=== PATIENT | female | born 1940 | race Caucasian/White ===

== ENCOUNTER 2020-10-09 08:12 | Outpatient (REF) | payer MEDICARE, OTHER, SELFPAY ==
[2020-10-09 09:41] LABS: Alanine Aminotransferase 12 U/L (0-31); Aspartate Amino Transferase 26 U/L (5-31); Cholesterol 171 mg/dL; HDL Cholesterol 68 mg/dL; LDL Cholesterol Calculated 84 mg/dl; Triglycerides 99 mg/dL
[2020-10-09 10:10] LABS: Vitamin D 25-OH Total 58.7 ng/mL (>30)
== END 2020-10-09 08:13 | disposition home or self-care (01) ==
LOC: HO.LAB 08:12
PROVIDERS: PCP Internal Medicine; Visit Provider Internal Medicine
DX: E78.5 Hyperlipidemia, unspecified (principal); L65.9 Nonscarring hair loss, unspecified; Z78.0 Asymptomatic menopausal state
CPT/HCPCS: 36415; 80061; 82306; 84450; 84460

== ENCOUNTER 2021-04-11 08:22 | Outpatient (REF) | payer MEDICARE, OTHER, SELFPAY ==
[2021-04-11 11:53] LABS: Alanine Aminotransferase 13 U/L (0-31); Anion Gap 12 (12-20); Aspartate Amino Transferase 27 U/L (5-31); Blood Urea Nitrogen 16 mg/dL (9-16); Calcium 9.7 mg/dL (8.4-10.2); Carbon Dioxide 31 mmol/L (22-29); Chloride 105 mmol/L (96-108); Cholesterol 175 mg/dL; Estimated Glomerular Filt Rate > 60; Glucose Fasting 95 mg/dL (60-99); HDL Cholesterol 63 mg/dL; LDL Cholesterol Calculated 81 mg/dl; Potassium 5.4 mmol/L (3.3-5.1); Sodium 143 mmol/L (135-145); Triglycerides 158 mg/dL
[2021-04-11 12:16] LABS: Vitamin D 25-OH Total 51.8 ng/mL (>30)
== END 2021-04-11 08:23 | disposition home or self-care (01) ==
LOC: HO.HMGCLDS 08:22
PROVIDERS: PCP Internal Medicine; Visit Provider Internal Medicine
DX: E78.5 Hyperlipidemia, unspecified (principal); I10 Essential (primary) hypertension; Z78.0 Asymptomatic menopausal state
CPT/HCPCS: 36415; 80048; 80061; 82306; 84450; 84460

== ENCOUNTER 2021-06-20 07:58 | Outpatient (REF) | payer MEDICARE, OTHER, SELFPAY ==
[2021-06-20 09:02] LABS: Alanine Aminotransferase 10 U/L (0-31); Aspartate Amino Transferase 26 U/L (5-31); Cholesterol 178 mg/dL; HDL Cholesterol 57 mg/dL; LDL Cholesterol Calculated 98 mg/dl; Triglycerides 118 mg/dL
== END 2021-06-20 07:59 | disposition home or self-care (01) ==
LOC: HO.LAB 07:58
PROVIDERS: PCP Internal Medicine; Visit Provider Internal Medicine
DX: E78.5 Hyperlipidemia, unspecified (principal); Z78.0 Asymptomatic menopausal state
CPT/HCPCS: 36415; 80061; 82306; 84450; 84460

== ENCOUNTER 2021-08-07 08:36 | Outpatient (REF) | payer MEDICARE, OTHER, SELFPAY ==
--- NOTE | ~2021-08-07 | MM_ITS ---
EXAMINATION: BONE DENSITOMETRY CLINICAL INDICATION: Other specified disorders of bone density and structure. COMPARISON: Previous BD dated 04/05/2016 and baseline BD dated 05/20/2005. TECHNIQUE: Using a [employer] DXA System (software version: 13.1) manufactured by [employer], dual-energy x-ray absorptiometry was performed of the lumbar spine and left hip. The images are of good technical quality. Summary results are attached. FINDINGS: AP SPINE L1-L4: Current: BMD 0.868 g/cm2, Z-score -0.6, T-score -2.6, osteoporosis, 10.7% decrease from previous, 15.1% decrease from baseline (<5% change is not significant). Prior: BMD 0.972 g/cm2. Baseline: BMD 1.022 g/cm2. LEFT FEMUR, NECK: Current: BMD 0.778 g/cm2, Z-score 0.3, T-score -1.9, osteopenia. Prior: BMD 0.788 g/cm2. Baseline: BMD 0.813 g/cm2. LEFT FEMUR, TOTAL: Current: BMD 0.821 g/cm2, Z-score 0.6, T-score -1.5, osteopenia, 4.9% decrease from previous, 8.6% decrease from baseline (<5% change is not significant). Prior: BMD 0.863 g/cm2. Baseline: BMD 0.898 g/cm2. IDENTIFIED RISK FACTORS: Height loss, menopause. HISTORY OF FRACTURE: None listed. MEDICATIONS: Calcium supplements or multivitamin, vitamin D. MM/XR DEXA axial skeleton IMPRESSION: 1. DIAGNOSIS: Osteoporosis based on the lowest T-score value of -2.6 in the lumbar spine applying World Health Organization criteria. 2. 10-YEAR FRACTURE RISK PREDICTION, FRAX: According to the guidelines, FRAX calculation should only be performed on patients in the osteopenia bone density category. 3. Treatment Recommendations: NOF guidelines recommend consideration for treatment in postmenopausal women and men age 50 and older presenting with the following: -A hip or vertebral (clinical or morphometric) fracture. -T-score less than or equal to -2.5 at the femoral neck or spine after appropriate evaluation to exclude secondary causes. -Low bone mass at the hip or spine and a 10-year fracture probability by FRAX of greater than or equal to 3% for hip fracture or greater than or equal to 20% for major osteoporotic fracture based on the [place] adapted WHO algorithm. 4. Other Recommendations: All treatment decisions require clinical judgment and consideration of individual patient factors, including patient preferences, comorbidities, previous drug use, risk factors not captured in the FRAX model (e.g. frailty, falls, vitamin D deficiency, increased bone turnover, interval significant decline in bone density) and possible under or overestimation of fracture risk by FRAX. Additional medical evaluation for secondary cause of low bone mineral density may be appropriate. FUTURE SCAN RECOMMENDATION: People with diagnosed cases of osteoporosis or at high risk for fracture should have regular bone mineral density tests. For patients eligible for Medicare, routine testing is allowed once every 2 years. The testing frequency can be increased to one year for patients who have rapidly progressing disease, those who are receiving or discontinuing medical therapy to restore bone mass, or have additional risk factors.
--- NOTE | ~2021-08-07 | MM_ITS ---
EXAMINATION: MM SCREENING DIGITAL BREAST TOMOSYNTHESIS, BILATERAL CLINICAL INFORMATION: Screening. Asymptomatic. The lifetime risk of breast cancer based on the Tyrer-Cuzick Model is 2%. COMPARISON: Mammography: 05/05/2017, 04/05/2016, 04/08/2013, 02/21/2012, 04/27/2009 TECHNIQUE: Digital breast tomosynthesis is performed in both the craniocaudal and mediolateral oblique views along with computer-aided detection (CAD). Synthesized 2D images are generated from the tomosynthesis. FINDINGS: There are scattered areas of fibroglandular density (ACR BI-RADS breast composition Category b). There are no significant masses, abnormal calcifications, or other abnormalities. Fine fibronodular parenchymal pattern is similar to prior studies. Scattered parenchymal asymmetries are stable. No developing density. The axilla and skin contours are unremarkable. MM/MM tomosynthesis screening BI IMPRESSION: No significant changes from prior studies. ASSESSMENT: BI-RADS 2: Benign RECOMMENDATION: Routine annual mammography screening. This patient's information was entered into a reminder system with a target due date for their next mammogram.
== END 2021-08-07 08:37 | disposition home or self-care (01) ==
LOC: HO.MAMMO 08:36
PROVIDERS: PCP Internal Medicine; Visit Provider Internal Medicine
DX: Z12.31 Encounter for screening mammogram for malignant neoplasm of breast (principal); M85.852 Other specified disorders of bone density and structure, left thigh; Z78.0 Asymptomatic menopausal state
CPT/HCPCS: 77063; 77067; 77080

== ENCOUNTER → 2021-11-08 10:18 | Outpatient (BNVA) | payer MEDICARE, OTHER, SELFPAY | PROVIDERS: PCP Internal Medicine; Referring Provider Internal Medicine; Visit Provider Internal Medicine | DX: Z13.89 Encounter for screening for other disorder (principal) | CPT/HCPCS: 93005; 99202 ==

== ENCOUNTER → 2021-11-08 14:37 | Outpatient (REF) | payer MEDICARE, OTHER, SELFPAY ==
--- NOTE | 2021-11-08 14:42 | CA_ITS ---
Transthoracic Echocardiogram Patient (Last, First, Middle): Vidhi Dunham K Gender: Female Date of : 1940 Age: 80 Procedure Date: 11/08/2021 Procedure Type: Transthoracic Echocardiogram Location: OP Height: 157.48 cm Weight: 58.51 kg BSA: 1.59 m2 Heart Rate: bpm BP: 110 / 68 mmHg Hand Method Lasting Machine Operator: REANNA Referring MD: Pacheco Gonzalez MD Counter Cutter: Camron Carrizales MD Symptoms: R07.2 - Precordial pain Study Quality: Adequate ECG Rhythm: Sinus Conclusions: - 1. Normal LV systolic function with grade 1 diastolic dysfunction 2. Trivial aortic regurgitation 3. Normal RV systolic pressure 4. No pericardial effusion Findings Left Ventricle Normal left ventricular size, thickness, and systolic function. The visually estimated ejection fraction is between 55-60%. Spectral Doppler is indicative of an impaired relaxation filling pattern. E/E prime ratio is <8, consistent with normal filling pressures. Evidence suggests grade I (mild) diastolic dysfunction. Right Ventricle Normal right ventricular cavity size and systolic function. Atria Both atria are normal in size. There is lipomatous hypertrophy of the interatrial septum. There is no evidence of interatrial shunt. Aortic Valve The aortic valve structure and function is likely normal. There is no aortic valve stenosis. There is trace (trivial) aortic valve regurgitation. Mitral Valve Normal mitral valve structure and function. There is trace mitral valve regurgitation. There is no mitral valve stenosis. Pulmonic Valve The pulmonic valve is likely normal. Tricuspid Valve Normal tricuspid valve structure. There is trace tricuspid valve regurgitation. The right ventricular systolic pressure is normal. The right ventricular systolic pressure is 21 mmHg. Normal right atrial pressure. There is no evidence of pulmonary hypertension. Great Vessels All visible segments of the aorta are normal in size. The pulmonary artery was not well visualized. Venous The inferior vena cava is normal in size and collapses greater than 50% with inspiration. Pericardium/Pleural There is no evidence of pericardial effusion. Prior Study Comparison No prior study available for comparison. Measurements 2D Linear Measurements IVSd: 0.80 0.6-0.9/0.6-1.0 cm LVIDd: 4.01 3.9-5.3/4.2-5.9 cm LVIDd Index: 2.52 2.4-3.2/2.2-3.1 cm/m2 LVIDs: 2.63 2.0-3.6 cm LVPWd: 0.69 0.7-1.1 cm LA Diam: 3.30 2.7-3.8/3.0-4.0 cm LAIDs Index: 2.08 1.5-2.3 cm/m2 LV Mass: 105.59 67-162/88-224 g LV Mass Index: 66.41 43-95/49-115 g/m2 LVOT Diam: 1.80 3.0+(-)1.3 cm 2D Systolic Function EF 4C: 55.30 >55% EF 2C: 49.20 >55% Mitral Valve MV Pk E: 0.52 MV PK A: 0.67 MV Decel Time: 211.00 E/A: 0.80 E'Lateral: 5.98 E'Medial: 5.55 E/E' Med: 9.30 E/E' Lat: 8.70 PHT: 62.00 MVA PHT: 3.55 Decel Curry: 2.45 Aortic Valve AoV Pk Juma: 1.14 AoV Mn Juma: 0.86 AoV VTI: 0.17 AoV Pk Grad: 5.00 Aov Mn Grad: 3.00 IQRA Cont.VTI: 2.42 LVOT LVOT Pk Juma: 0.97 LVOT Mn Juma: 0.67 LVOT VTI: 0.17 LVOT Pk Grad: 4.00 LVOT Mn Grad: 2.00 LVOT Diam: 1.80 LVOT Area: 2.54 Diastolic Function MV Pk E: 0.52 MV Pk A: 0.67 E/A: 0.80 E'Medial: 5.55 E/E' Med: 9.30 E' Laterial: 5.98 E/E' Lat: 8.70 Right Ventricle TAPSE (mm): 22.40 TVS' Juma: 15.30 Tricuspid Valve TR Pk Juma: 2.15 TR Pk Grad: 18.00 RA Press: 3.00 RVSP: 21.00 Great Vessels Aorta Sinus of Valsalva: 2.95 2.0-3.[address] Ridge: 2.70 1.7-3.4 cm Ao Asc: 3.20 2.1-3.4 cm Pulmonary Veins Pulm Vein S/D 1.50 Pulmonary Valve PV Pk Juma: 0.74 Peak PV Grad: 2.00 Updated in Other Vendor System with Status of Final Camron Carrizales MD electronically signed on 11/09/2021 12:51:12 PM with status of Final
== END ==
LOC: HO.CARD 14:37
PROVIDERS: PCP Internal Medicine; Visit Provider Internal Medicine
DX: R07.2 Precordial pain (principal); R06.02 Shortness of breath; Z79.899 Other long term (current) drug therapy
CPT/HCPCS: 93005; 93306; 99202

== ENCOUNTER → 2021-11-14 07:47 | Outpatient (REF) | payer MEDICARE, OTHER, SELFPAY ==
--- NOTE | ~2021-11-14 | NM_ITS ---
EXERCISE MYOCARDIAL PERFUSION STUDY INDICATION: Chest pain, shortness of breath, assess for coronary disease and ischemia TECHNIQUE: The patient was brought in for an exercise perfusion study on 11/14/2021. Patient performed exercise as per Jose Antonio protocol and was injected 25 mCi of sestamibi once target heart rate was achieved. Images were obtained using the SPECT gamma camera interlaced with the gating device. Images were obtained in supine position. Resting perfusion study was performed on 11/15/2021. Patient was administered 25 mCi of sestamibi intravenously at rest. Images were then obtained in supine position. Total DLP 89mGy-cm. Images were processed with the software and compared side to side in short axis, horizontal long axis and vertical long axis views. FINDINGS: Raw images were reviewed. The stress perfusion study showed slightly reduced tracer uptake in the inferolateral wall, but there is normalization with CT attenuation correction and hence most likely artifactual. The gated study shows normal LV systolic function with calculated LVEF of 74%. LV cavity is normal in size. The gated study shows normal wall thickening and contraction of segments. Resting study shows no significant perfusion abnormality. Gating at rest reveals normal wall motion with ejection fraction at 63%. The findings are consistent with no definite reversible or fixed perfusion defects. NM/NM cardiolite stress test IMPRESSION: 1. Myocardial perfusion imaging study shows likely normal myocardial perfusion. 2. Gated LVEF is 74% during stress and 63% during rest. 3. Transient ischemic dilatation not present. EKG component of the test reported separately.
--- NOTE | 2021-11-14 07:51 | CA_ITS ---
Acquisition Time: 2021-11-14 08:14:38 Total Exercise Time: 00:05:15 Test Indications: Dyspnea Medications: ALENDRONATE Protocol: TIFFANIE Max HR: 134 BPM 95% of Pred: 141 BPM Max BP: 142/078 mmHG Max Work Load: 7.0 METS Exercise stress test with exercise 5 min 15 sec of Tiffanie protocol, achieving > 85% MPHR, stopping due to significant artifact on monitor, with mild sob, no chest discomfort, with isolated PACs, with normotensive response to exercise, with EKG showing artifact during exercise, without EKG changes of ischemia in recovery. Nuclear images pending. Test reviewed with Dr Carrizales Referred By: Pacheco Gonzalez Overread By: GILBERTO NGO
== END ==
LOC: HO.CARD 07:47
PROVIDERS: PCP Internal Medicine; Visit Provider Internal Medicine
DX: R07.2 Precordial pain (principal); R06.02 Shortness of breath
CPT/HCPCS: 78452; 93017; A9500

== ENCOUNTER → 2021-12-05 14:23 | Outpatient (BNVA) | payer MEDICARE, OTHER, SELFPAY | PROVIDERS: PCP Internal Medicine; Referring Provider Internal Medicine; Visit Provider Internal Medicine | DX: R07.2 Precordial pain (principal); R06.02 Shortness of breath | CPT/HCPCS: 99212 ==

== ENCOUNTER 2021-12-07 07:57 | Outpatient (REF) | payer MEDICARE, OTHER, SELFPAY ==
[2021-12-07 09:34] LABS: Alanine Aminotransferase 10 U/L (0-31); Anion Gap 11 (12-20); Aspartate Amino Transferase 23 U/L (5-31); Blood Urea Nitrogen 17 mg/dL (9-16); Calcium 9.3 mg/dL (8.4-10.2); Carbon Dioxide 27 mmol/L (22-29); Chloride 103 mmol/L (96-108); Cholesterol 272 mg/dL; Estimated Glomerular Filt Rate > 60; Glucose Fasting 94 mg/dL (60-99); HDL Cholesterol 66 mg/dL; LDL Cholesterol Calculated 190 mg/dl; Potassium 4.4 mmol/L (3.3-5.1); Sodium 137 mmol/L (135-145); Triglycerides 84 mg/dL
== END 2021-12-07 07:58 | disposition home or self-care (01) ==
LOC: HO.LAB 07:57
PROVIDERS: PCP Internal Medicine; Visit Provider Internal Medicine
DX: M85.852 Other specified disorders of bone density and structure, left thigh (principal); E78.5 Hyperlipidemia, unspecified; R07.2 Precordial pain
CPT/HCPCS: 36415; 80048; 80061; 82306; 84450; 84460

== ENCOUNTER 2021-12-27 08:02 | Outpatient (REF) | payer MEDICARE, OTHER, SELFPAY ==
[2021-12-27 10:08] LABS: Anion Gap 11 (12-20); Blood Urea Nitrogen 18 mg/dL (9-16); Calcium 9.2 mg/dL (8.4-10.2); Carbon Dioxide 32 mmol/L (22-29); Chloride 105 mmol/L (96-108); Estimated Glomerular Filt Rate > 60; Glucose Random 106 mg/dL (60-115); Potassium 4.9 mmol/L (3.3-5.1); Sodium 143 mmol/L (135-145)
== END 2021-12-27 08:03 | disposition home or self-care (01) ==
LOC: HO.LAB 08:02
PROVIDERS: PCP Internal Medicine; Visit Provider Internal Medicine
DX: R07.2 Precordial pain (principal); R06.02 Shortness of breath
CPT/HCPCS: 36415; 80048

== ENCOUNTER → 2022-04-04 09:55 | Outpatient (BNVA) | payer MEDICARE, OTHER, SELFPAY | PROVIDERS: PCP Internal Medicine; Referring Provider Internal Medicine; Visit Provider Internal Medicine | DX: I25.10 Atherosclerotic heart disease of native coronary artery without angina pectoris (principal); E78.5 Hyperlipidemia, unspecified | CPT/HCPCS: 99212 ==

== ENCOUNTER 2022-04-18 08:00 | Outpatient (REF) | payer MEDICARE, OTHER, SELFPAY ==
[2022-04-18 12:05] LABS: Alanine Aminotransferase 11 U/L (0-31); Aspartate Amino Transferase 28 U/L (5-31); Cholesterol 210 mg/dL; HDL Cholesterol 82 mg/dL; LDL Cholesterol Calculated 115 mg/dl; Triglycerides 68 mg/dL
== END 2022-04-18 08:01 | disposition home or self-care (01) ==
LOC: HO.HMGCLDS 08:00
PROVIDERS: PCP Internal Medicine; Visit Provider Internal Medicine
DX: E78.5 Hyperlipidemia, unspecified (principal)
CPT/HCPCS: 36415; 80061; 84450; 84460

== ENCOUNTER 2022-08-05 07:48 | Emergency (ER) | payer MEDICARE, OTHER, SELFPAY ==
[2022-08-05 07:50] VITALS: BP 144/86; PULSE 90; RESP 18; TEMP 36.6; O2SAT 98; BMI 23.0
--- NOTE | 2022-08-05 08:25 | ED_ITS ---
HPI - Extremity Problem General Chief complaint: Extremity Problem Stated complaint: toe infection Time Seen by Provider: 08/05/22 08:03 Source: patient Mode of arrival: ambulatory History of Present Illness HPI Narrative: 81-year-old female with a past medical history of ACS, osteoporosis, presenting to the ED complaining of right toe pain with increasing pain, erythema and swelling x2 days. Admits recently saw supervisor maintenance on Friday who cut out ingrown toenail, subsequently was seen at [facility] yesterday for increasing redness / swelling to area & prescribed Keflex 500 mg b.i.d. without improvement. patient admits she has been taking antibiotics x2 days. Also applying topical silver sulfasalazine when changing dressings. denies drainage from area, fever, chills, numbness /tingling Onset (ago): day(s) Related Data Home Medications Medication Instructions Recorded Confirmed cholecalciferol (vitamin D3) 50 50 mcg PO DAILY 10/12/20 04/04/22 mcg (2,000 unit) capsule omega-3 fatty acids 1,250 mg 1,250 mg PO DAILY 10/12/20 04/04/22 capsule Previous Rx's Medication Instructions Recorded rosuvastatin 10 mg tablet 10 mg PO DAILY #90 tabs 12/04/21 epinephrine 0.3 mg/0.3 mL 0.3 mg (0.3 mL) IM Q15M PRN 01/04/22 injection, auto-injector (EpiPen anaphylaxis #2 ea 2-Kevin) alendronate 70 mg tablet 70 mg PO QWEEK 3 months #13 tabs 07/12/22 cephalexin 500 mg capsule 500 mg PO QID 7 days #28 caps 08/05/22 clotrimazole 1 % topical ointment 1 appl topical BID 2 weeks #56.7 08/05/22 grams Allergies Allergy/AdvReac Type Severity Reaction Status Date / Time bees Allergy Unknown swelling Uncoded 07/05/22 08:58 lipitor AdvReac Unknown abnormal Uncoded 07/05/22 08:58 LFTs Review of Systems Review of Systems: Constitutional: No Fever, No Chills ENT/Mouth: No Ear Pain, No Nasal Congestion, No sore throat, No Rhinorrhea, No Swallowing Difficulty Cardiovascular: No Chest Pain, No SOB Respiratory: No Cough, No Sputum, No Wheezing Gastrointestinal: No Nausea, No Vomiting, No Diarrhea, No Constipation, No Abdominal pain Genitourinary: No Dysuria, No Urinary Frequency, No Flank Pain Musculoskeletal: No joint pain, No Myalgias, + Joint Swelling Skin: + Skin Lesions, No rash Neuro: No Weakness, No Numbness, No Paresthesias Yes all other systems are reviewed and are negative Constitutional: Constitutional: Reports as per [facility] Past Medical History Attestation statement: The following information was validated with the patient. Medical History Atherosclerotic cardiovascular disease Bee sting allergy H/O exertional chest pain Osteopenia of left hip Osteoporosis of lumbar spine Surgical History History of kidney surgery Family History Family History Father Prostate cancer Mother Essential hypertension Coronary artery disease Stroke Brother Pancreatic cancer Social History Social History Housing: House Alcohol intake: never Patient Tobacco Use Status: Never used Tobacco Smoked in Last 30 Days: No e-Cigarette/Vaping Use: Never Used Use of substances other than those prescribed or required for medical reasons: No Advance Directives: Yes Advance Directives on File: Yes Advance Directives Date on File: 07/05/22 Current occupational status: retired Cognitive needs: No Hearing needs: No Vision needs: No Physical Exam Vital Signs: Vital Signs: Last Vital Signs Temp 97.8 F 08/05/22 07:50 Pulse 90 08/05/22 07:50 Resp 18 08/05/22 07:50 BP 144/86 H 08/05/22 07:50 Pulse Ox 98 08/05/22 07:50 O2 Del Method 08/05/22 07:50 BMI result Body Mass Index 23.0 Const: General: cooperative, healthy appearing and no acute distress Orientation/consciousness: patient oriented x3 Limitations: no limitations HEENT: Head: Yes normal to inspection and Yes atraumatic Ears: hearing grossly normal bilaterally General nose exam: Normal external nose present Face and sinus: Yes normal facial exam Eyes: General: appearance normal, both eyes and all related structures EOM: EOMs intact bilaterally Resp: Effort & Inspection: normal respiratory effort and no respiratory distress Auscultation: clear to auscultation bilaterally Cardio: Rate: regular rate Skin: Rashes: no rashes Neuro: General: patient oriented x3 and tone normal Gait exam (Neuro): Normal gait present Extrem: Other: right great toe with diffuse erythema and mild swelling. No fluctuance/ induration or active drainage. No warmth Ingrown toenail cut-out of medial aspect. + Skin scaling noted to distal right toe a and volar aspect of 2nd and 3rd toes. Medications Administered Discontinued Medications Generic Name Dose Route Start Last Admin Trade Name Daniela PRN Reason Stop Dose Admin Bacitracin 1 appl 08/05/22 08:12 08/05/22 08:32 Bacitracin Oint 14 Gm Tube TOPICAL 08/05/22 08:13 1 appl ONCE ONE Administration Protocol Medical Decision Making Medical Decision Making MDM Narrative: 81-year-old female with a past medical history of ACS, osteoporosis, presenting to the ED complaining of right toe pain with increasing pain, erythema and swelling x2 days. on exam vital signs stable, NAD, nontoxic appearing, physical exam as above concerning for early cellulitis with overlying fungal infection. Discussed with patient she has not yet failed outpatient therapy has only been taking antibiotic x2 days. Will change dosing of Keflex to 4 times daily rather than b.i.d. and add topical clotrimazole. Discussed with patient need close follow-up with supervisor maintenance at perform procedure. Results discussed with patient including worrisome signs and symptoms and strict return precautions, and when to return to the emergency department. They verbalized understanding and feel safe for discharge at this time. Differential Diagnosis Differential Diagnoses: The differential diagnosis associated with the presentation includes as above Discharge Plan Discharge Clinical Impression: Cellulitis, Tinea pedis Patient Disposition: Home, Self-Care Instructions: Athlete's Foot (ED), Cellulitis (ED) Additional Instructions: Discontinue previously prescribed antibiotic, & start taking a new antibiotic 4 times daily. This is the same medicine however will be taken more frequently. In addition apply topical clotrimazole cream which is antifungal medication please call the supervisor maintenance for close follow-up this week. If area persists or worsens, becomes more red, has drainage or fever or unbearable pain return to the emergency department Prescriptions: New cephalexin 500 mg capsule 500 mg PO QID 7 Days Qty: 28 0RF clotrimazole 1 % ointment 1 appl topical BID 14 Days Qty: 56.7 0RF No Action rosuvastatin 10 mg tablet 10 mg PO DAILY Qty: 90 3RF epinephrine [EpiPen 2-Kevin] 0.3 mg/0.3 mL auto-injector 0.3 mg IM Q15M PRN (Reason: anaphylaxis) Qty: 2 3RF Rx Instructions: for 3 doses alendronate 70 mg tablet 70 mg PO QWEEK 90 Days Qty: 13 4RF cholecalciferol (vitamin D3) 50 mcg (2,000 unit) capsule 50 mcg PO DAILY omega-3 fatty acids 1,250 mg capsule 1,250 mg PO DAILY Referrals: Juliana Esparza MD [Primary Care Provider] - Interventions: ED Discharge Assessment Last Done: 08/05/22 08:44
[2022-08-05] MEDS: Bacitracin Oint 14 GM TUBE 1 APPL TOPICAL (08:32)
== END 2022-08-05 08:45 | disposition home or self-care (01) ==
PROVIDERS: Emergency Provider Student in an Organized Health Care Education/Training Program; PCP Internal Medicine
DX: L03.031 Cellulitis of right toe (principal); B35.3 Tinea pedis
CPT/HCPCS: 99283

== ENCOUNTER 2022-08-09 09:06 | Emergency (ER) | payer MEDICARE, OTHER, SELFPAY ==
[2022-08-09 09:13] VITALS: BP 128/84; PULSE 97; RESP 18; TEMP 36.6; O2SAT 98; BMI 23.0
--- NOTE | 2022-08-09 10:43 | ED_ITS ---
HPI - General Adult General Chief complaint: Extremity Injury, Lower Stated complaint: Toe infection R foot Time Seen by Provider: 08/09/22 10:35 Source: patient Limitations: no limitations History of Present Illness HPI narrative: Patient presents to the ER complaining of redness of the right great toe status post seen the revenue integrity analyst to have a ingrown nail partially removed. Patient is currently on cephalexin and clotrimazole topical. Patient states she has noted some redness on the medial aspect of the right great toe. patient denies fever chills. Patient states he takes a cholesterol medication only. Patient has follow-up with Podiatry on the of this month. Pain is 6/10. Related Data Home Medications Medication Instructions Recorded Confirmed cholecalciferol (vitamin D3) 50 50 mcg PO DAILY 10/12/20 04/04/22 mcg (2,000 unit) capsule omega-3 fatty acids 1,250 mg 1,250 mg PO DAILY 10/12/20 04/04/22 capsule Previous Rx's Medication Instructions Recorded rosuvastatin 10 mg tablet 10 mg PO DAILY #90 tabs 12/04/21 epinephrine 0.3 mg/0.3 mL 0.3 mg (0.3 mL) IM Q15M PRN 01/04/22 injection, auto-injector (EpiPen anaphylaxis #2 ea 2-Kevin) alendronate 70 mg tablet 70 mg PO QWEEK 3 months #13 tabs 07/12/22 cephalexin 500 mg capsule 500 mg PO QID 7 days #28 caps 08/05/22 clotrimazole 1 % topical ointment 1 appl topical BID 2 weeks #56.7 08/05/22 grams doxycycline hyclate 100 mg capsule 100 mg PO BID 7 days #14 caps 08/09/22 Allergies Allergy/AdvReac Type Severity Reaction Status Date / Time bees Allergy Unknown swelling Uncoded 07/05/22 08:58 lipitor AdvReac Unknown abnormal Uncoded 07/05/22 08:58 LFTs Review of Systems Review of Systems: Constitutional : Patient denies nausea vomiting fever chills ENT/Mouth : no sore throat Eyes: no vision changes Cardiovascular : no chest pain shortness of breath Respiratory : no shortness of breath Gastrointestinal : No Nausea, No Vomiting, No Diarrhea Musculoskeletal : right great toe pain Neuro : denies headache dizziness Psych : No Anxiety/Panic, No Depression, No SI/HI/AH/VH, No Social Issues, Heme/Lymph: No Bruising, No Bleeding,No Lymphadenopathy Endocrine : No Polyuria, No Polydipsia, No Temperature Intolerance [facility] Past Medical History Medical History Atherosclerotic cardiovascular disease Bee sting allergy H/O exertional chest pain Osteopenia of left hip Osteoporosis of lumbar spine Surgical History History of kidney surgery Family History Family History Father Prostate cancer Mother Essential hypertension Coronary artery disease Stroke Brother Pancreatic cancer Social History Social History Housing: House Alcohol intake: never Patient Tobacco Use Status: Never used Tobacco Smoked in Last 30 Days: No e-Cigarette/Vaping Use: Never Used Use of substances other than those prescribed or required for medical reasons: No Advance Directives: Yes Advance Directives on File: Yes Advance Directives Date on File: 07/05/22 Current occupational status: retired Cognitive needs: No Hearing needs: No Vision needs: No Physical Exam ED Vital Signs: Vital Signs - 24 hr 08/09/22 09:13 Temperature 98 F Pulse Rate 97 Respiratory Rate 18 Blood Pressure 128/84 Pulse Oximetry 98 Oxygen Delivery Method Room Air BMI result Body Mass Index 23.0 vital signs have been reviewed as normal and appeared to be correct. Blood pressure normal. Heart rate normal. Respiration rate normal. Temperature normal. Oxygen saturation normal. Appearance: Alert. Oriented X3. No acute distress. Head: Normal external exam. Normocephalic. Atraumatic. Eyes: PERRLA. EOMI. Conjunctiva and sclera normal. Eyelids normal. ENT: Pharynx normal. Uvula midline. Moist mucous membranes. Neck: Soft full range of motion, no JVD Back: Full range of motion noted. Skin: skin is warm and dry no rashes. Right great toe some erythema of the medial aspect no fluctuant masses noted no lymphangitis noted Extremities: right great toe nail removed by podiatry is noted. No pustulant discharge some erythema of the medial aspect no lymphangitis pulses sensation intact full range of motion Neuro: Oriented X 3. No motor deficit. No sensory deficit. Reflexes normal. Course Course Course Narrative: Ingrown toenail Cellulitis Abscess Medical Decision Making Medical Decision Making MDM Narrative: 81-year-old female who presents to the ER with right great toe pain status post ingrown toenail removal by Podiatry. Patient's concern for potential infection as she has some redness in the medial aspect. Patient denies any fever chills or discharge from the wound. Patient has follow-up planned with Podiatry on the 9th of this month. Patient currently on Keflex and topical clotrimazole. And on exam this does not look fungal in nature some erythema is noted but no lymphangitis. Will add doxycycline for greater coverage patient has follow-up with podiatry planned . Patient is afebrile no concerns at this time for systemic illness. Strict return instructions given to patient Discharge Plan Discharge Clinical Impression: Cellulitis, toe Patient Disposition: Home, Self-Care Instructions: Cellulitis (ED) Additional Instructions: Continue the antibiotics your on at this time we will add another antibiotic for broader coverage. Elevation is important to decrease any swelling. Return if symptoms worsen such as fever swelling or pain. Follow-up with podiatry as planned. Prescriptions: New doxycycline hyclate 100 mg capsule 100 mg PO BID 7 Days Qty: 14 0RF No Action rosuvastatin 10 mg tablet 10 mg PO DAILY Qty: 90 3RF epinephrine [EpiPen 2-Kevin] 0.3 mg/0.3 mL auto-injector 0.3 mg IM Q15M PRN (Reason: anaphylaxis) Qty: 2 3RF Rx Instructions: for 3 doses alendronate 70 mg tablet 70 mg PO QWEEK 90 Days Qty: 13 4RF cephalexin 500 mg capsule 500 mg PO QID 7 Days Qty: 28 0RF clotrimazole 1 % ointment 1 appl topical BID 14 Days Qty: 56.7 0RF cholecalciferol (vitamin D3) 50 mcg (2,000 unit) capsule 50 mcg PO DAILY omega-3 fatty acids 1,250 mg capsule 1,250 mg PO DAILY
== END 2022-08-09 11:03 | disposition home or self-care (01) ==
PROVIDERS: Emergency Provider Emergency Medicine; PCP Internal Medicine
DX: S90.421A Blister (nonthermal), right great toe, initial encounter (principal); L03.031 Cellulitis of right toe; X58.XXXA Exposure to other specified factors, initial encounter; Y93.9 Activity, unspecified; Y92.9 Unspecified place or not applicable; Y99.9 Unspecified external cause status
CPT/HCPCS: 99283

== ENCOUNTER 2022-08-16 06:12 | Emergency (ER) | payer MEDICARE, OTHER, SELFPAY ==
[2022-08-16 06:21] VITALS: BP 119/77; PULSE 92; RESP 20; TEMP 36.3; O2SAT 98; BMI 23.0
[2022-08-16 07:19] VITALS: BP 112/72; PULSE 84; RESP 16; TEMP 36.8; O2SAT 95
--- NOTE | 2022-08-16 07:41 | ED.WOUNDLAC ---
HPI - Wound/Laceration General Chief Complaint: Wound/Laceration Stated Complaint: R Toe Infected Time Seen by Provider: 08/16/22 06:36 Source: patient Mode of arrival: ambulatory History of Present Illness HPI narrative: This is an 81-year-old female who is not a diabetic and presents for her 3rd visit regarding a right great toe infection after removal by Podiatry for an ingrown toenail. Patient has been undergoing multiple modalities which include Silvadene cream, then toe appeared to become infected and she was started on a course of cephalexin which somewhat improved but then she reports that returned?. Patient denies any associated fever or chills and denies any pain at the MTP. Related Data Home Medications Medication Instructions Recorded Confirmed cholecalciferol (vitamin D3) 50 50 mcg PO DAILY 10/12/20 04/04/22 mcg (2,000 unit) capsule omega-3 fatty acids 1,250 mg 1,250 mg PO DAILY 10/12/20 04/04/22 capsule Previous Rx's Medication Instructions Recorded rosuvastatin 10 mg tablet 10 mg PO DAILY #90 tabs 12/04/21 epinephrine 0.3 mg/0.3 mL 0.3 mg (0.3 mL) IM Q15M PRN 01/04/22 injection, auto-injector (EpiPen anaphylaxis #2 ea 2-Kevin) clotrimazole 1 % topical ointment 1 appl topical BID 2 weeks #56.7 08/05/22 grams doxycycline hyclate 100 mg capsule 100 mg PO BID 7 days #14 caps 08/09/22 cephalexin 500 mg capsule 500 mg PO BID 7 days #14 caps 08/16/22 doxycycline hyclate 100 mg tablet 100 mg PO BID 7 days #14 tabs 08/16/22 Allergies Allergy/AdvReac Type Severity Reaction Status Date / Time bees Allergy Unknown swelling Uncoded 08/16/22 06:23 lipitor AdvReac Unknown abnormal Uncoded 08/16/22 06:23 LFTs Review of Systems Review of Systems: Pertinent positives and negatives as stated in HPI. PMFSH Past Medical History Source: nursing notes reviewed Medical History Atherosclerotic cardiovascular disease Bee sting allergy H/O exertional chest pain Non-healing skin lesion Osteopenia of left hip Osteoporosis of lumbar spine Surgical History History of kidney surgery Family History Family History Father Prostate cancer Mother Essential hypertension Coronary artery disease Stroke Brother Pancreatic cancer Social History Social History Housing: House Alcohol intake: never Patient Tobacco Use Status: Never used Tobacco e-Cigarette/Vaping Use: Never Used Advance Directives: Yes Advance Directives on File: Yes Advance Directives Date on File: 07/05/22 Current occupational status: retired Cognitive needs: No Hearing needs: No Vision needs: Yes Physical Exam Vital Signs: Vital Signs: Last Vital Signs Temp 98.3 F 08/16/22 07:19 Pulse 84 08/16/22 07:19 Resp 16 08/16/22 07:19 BP 112/72 08/16/22 07:19 Pulse Ox 95 08/16/22 07:19 O2 Del Method 08/16/22 07:19 BMI result Body Mass Index 23.0 VITAL SIGNS: Reviewed. GENERAL: Well developed, well nourished, in no acute distress. HEAD: Normocephalic/atraumatic EYES: PERRLA, EOMI LUNGS: Normal breath sounds. No adventitious sounds or accessory muscle use. SpO2<95> CARDIOVASCULAR: Regular rate and rhythm without noted murmurs ABDOMEN: Soft, non-tender, non-distended with bowel sounds. RIGHT GREAT TOE: There is erythema with maximal redness at the area where the ingrown toenail was removed and possibly purulence material at the medial aspect of the nail bed. Otherwise, there is no erythema that extends proximally to the MTP and there is no evidence of necrosis. NEUROLOGIC: Alert and oriented x 4. Medical Decision Making Medical Decision Making MDM Narrative: 81-year-old female with whom I suspect is an on going issue with her right great toe that is a combination of medication reactions an incomplete medication treatment. Patient will be discharged on BOTH cephalexin and doxycycline which she will start today, she was instructed to not start the Augmentin and she will also complement this with b.i.d. foot soaks with Epsom salt. She was strictly informed to return to the emergency room for IV antibiotics if there is no improvement by Friday. Differential Diagnosis Differential Diagnoses: The differential diagnosis associated with the presentation includes Please see the discussion above External Record Review External record reviewed: Outpatient record and Prior outpatient labs Discharge Plan Discharge Clinical Impression: Cellulitis of great toe Patient Disposition: Home, Self-Care Instructions: Cellulitis (ED) Additional Instructions: 1. Please resume your home medications as prescribed. 2. You will only be taking doxycycline/cephalexin as directed. Stop all other antibiotics. 3. Twice daily Epsom salt soaks. Please clean with soap and water prior to this soaks, use antibiotic ointment (not Neosporin) throughout the day. 4. If no improvement by Friday morning please return to the emergency room. Prescriptions: New doxycycline hyclate 100 mg tablet 100 mg PO BID 7 Days Qty: 14 0RF cephalexin 500 mg capsule 500 mg PO BID 7 Days Qty: 14 0RF No Action rosuvastatin 10 mg tablet 10 mg PO DAILY Qty: 90 3RF epinephrine [EpiPen 2-Kevin] 0.3 mg/0.3 mL auto-injector 0.3 mg IM Q15M PRN (Reason: anaphylaxis) Qty: 2 3RF Rx Instructions: for 3 doses clotrimazole 1 % ointment 1 appl topical BID 14 Days Qty: 56.7 0RF doxycycline hyclate 100 mg capsule 100 mg PO BID 7 Days Qty: 14 0RF cholecalciferol (vitamin D3) 50 mcg (2,000 unit) capsule 50 mcg PO DAILY omega-3 fatty acids 1,250 mg capsule 1,250 mg PO DAILY Referrals: Juliana Esparza MD [Primary Care Provider] -
== END 2022-08-16 08:09 | disposition home or self-care (01) ==
PROVIDERS: Emergency Provider Student in an Organized Health Care Education/Training Program; PCP Internal Medicine
DX: L03.031 Cellulitis of right toe (principal); Z79.899 Other long term (current) drug therapy
CPT/HCPCS: 99282

== ENCOUNTER 2022-08-19 05:59 | Emergency (ER) | payer MEDICARE, OTHER, SELFPAY ==
--- NOTE | ~2022-08-19 | XR_ITS ---
EXAMINATION: XR TOES, RIGHT CLINICAL INFORMATION: Great toe pain/redness. COMPARISON: None TECHNIQUE: 3 views of the right toes were obtained. FINDINGS: No fracture or dislocation is identified. No joint effusion is identified. No bone, joint or soft tissue abnormality is appreciated. XR/XR toe RT min 2V IMPRESSION: Unremarkable examination.
[2022-08-19 06:08] VITALS: BP 134/67; PULSE 83; RESP 16; TEMP 36.5; O2SAT 99; BMI 23.0
--- NOTE | 2022-08-19 07:04 | ED.EXTPRO ---
HPI - Extremity Problem General Chief complaint: Extremity Problem Stated complaint: toe infection Time Seen by Provider: 08/19/22 06:44 Source: patient and old records reviewed Mode of arrival: ambulatory Limitations: no limitations History of Present Illness HPI Narrative: 81 yo female with PMH of HLD, CAD s/p R great toe procedure with cnc milling machine operator on 08/02 where her medial toenail was cut and she states it was cut deeply and she bled. That day the toe became more red and painful. Two days later she was on antibiotics and since then she has been on and off cephalexin and doxycycline since 08/04/21. She is currently on cephalexin and doxycycline. She has no systemic symptoms but the redness, pain and warmth of the toe has not improved. She is active likes to dance and is worried she is going to lose her toe. She saw another cnc milling machine operator who advised NSAIDs. MD Complaint: other (non healing wound) Onset (ago): week(s) (2.5) Pain Consistency: constant Location: right and toe (great) Quality: aching Radiation: none Relieving factors: immobilization Exacerbating factors: weight bearing and walking Associated symptoms: rash Context: recent surgery/procedure Related Data Home Medications Medication Instructions Recorded Confirmed cholecalciferol (vitamin D3) 50 50 mcg PO DAILY 10/12/20 08/18/22 mcg (2,000 unit) capsule omega-3 fatty acids 1,250 mg 1,250 mg PO DAILY 10/12/20 08/18/22 capsule Previous Rx's Medication Instructions Recorded rosuvastatin 10 mg tablet 10 mg PO DAILY #90 tabs 12/04/21 epinephrine 0.3 mg/0.3 mL 0.3 mg (0.3 mL) IM Q15M PRN 01/04/22 injection, auto-injector (EpiPen anaphylaxis #2 ea 2-Kevin) clotrimazole 1 % topical ointment 1 appl topical BID 2 weeks #56.7 08/05/22 grams doxycycline hyclate 100 mg capsule 100 mg PO BID 7 days #14 caps 08/09/22 cephalexin 500 mg capsule 500 mg PO BID 7 days #14 caps 08/16/22 doxycycline hyclate 100 mg tablet 100 mg PO BID 7 days #14 tabs 08/16/22 Allergies Allergy/AdvReac Type Severity Reaction Status Date / Time bees Allergy Unknown swelling Uncoded 08/18/22 21:52 lipitor AdvReac Unknown abnormal Uncoded 08/18/22 21:52 LFTs Review of Systems Review of Systems: Constitutional : No Fever, No Chills ENT/Mouth : No sore throat, No Rhinorrhea Eyes: No Eye Pain, No Swelling, No Redness Cardiovascular : No Chest Pain, No SOB Respiratory : No Cough, No Sputum Gastrointestinal : No Nausea, No Vomiting, No Diarrhea, No abdominal Pain Genitourinary : No Dysuria, No Hematuria Musculoskeletal : No joint pain, No Myalgias, No Joint Swelling Skin : No Skin Lesions, positive skin rash Neuro : No Weakness, No Numbness, No Headache Psych : No Anxiety, No Depression Heme/Lymph: No Bruising, No Bleeding,No Lymphadenopathy Endocrine : No Polyuria, No Polydipsia All other systems reviewed and are negative [facility] Past Medical History Attestation statement: The following information was validated with the patient. Medical History (Updated 08/19/22 @ 09:12 by Riki Farias MD) Atherosclerotic cardiovascular disease Bee sting allergy H/O exertional chest pain Non-healing skin lesion Osteopenia of left hip Osteoporosis of lumbar spine Toe infection Surgical History History of kidney surgery Family History Family History Father Prostate cancer Mother Essential hypertension Coronary artery disease Stroke Brother Pancreatic cancer Social History Social History Housing: House Alcohol intake: never Patient Tobacco Use Status: Never used Tobacco e-Cigarette/Vaping Use: Never Used Advance Directives Date on File: 07/05/22 Current occupational status: retired Cognitive needs: No Hearing needs: No Vision needs: Yes Physical Exam Vital Signs: Vital Signs: Last Vital Signs Temp 98.3 F 08/19/22 09:00 Pulse 81 08/19/22 09:00 Resp 16 08/19/22 09:00 BP 116/70 08/19/22 09:00 Pulse Ox 98 08/19/22 09:00 O2 Del Method 08/19/22 09:00 BMI result Body Mass Index 23.0 Appearance: Alert. Oriented X3. No acute distress. Eyes: Pupils equal, round and reactive to light. ENT: Pharynx normal. Neck: Normal inspection. Neck supple. CVS: Normal heart rate and rhythm. Pulses normal. Respiratory: No respiratory distress. Breath sounds normal. Abdomen: Soft and nontender. Skin: Skin warm and dry. Normal skin color. Normal skin turgor. Extremities: No lower extremity edema. bounding pulses, R great toe - scab noted medial aspect of the toe, fluctuant area felt as well but small, the toe is warm circumferentially with redness and swelling compared to l great toe. there is no extension onto the foot itself. area is ttp Neuro: Oriented X 3. No motor deficit. No sensory deficit. Course Course Course Narrative: Dr. Farias to come see the patient in the ED - I/D will see in office sent off wound culture will continue antibiotics, does not require admission Medications Administered Discontinued Medications Generic Name Dose Route Start Last Admin Trade Name Freq PRN Reason Stop Dose Admin Piperacillin Sod/Tazobactam 50 mls @ 100 mls/hr 08/19/22 06:53 08/19/22 09:00 Sod 3.375 gm/ Sodium Chloride IV 08/19/22 07:22 Infused ONCE ONE Infusion Vancomycin HCl 1,500 mg/ 500 mls @ 333.333 mls/hr 08/19/22 06:53 08/19/22 10:34 Sodium Chloride IV 08/19/22 08:22 Infused ONCE ONE Infusion Lidocaine HCl 20 ml 08/19/22 09:20 08/19/22 09:32 Lidocaine Hcl 1 % 20 Ml Vial SUBCUT 08/19/22 09:21 20 ml ONCE ONE Administration Medical Decision Making Medical Decision Making [facility] Narrative: 81 yo female with HLD, CAD she is not diabetic she has good pulses she has a non healing wound not responding to PO antibiotics since 08/04 she has no systemic symptoms - at this time the toe does appear infected vs small abscess vs possible start of osteo. At this time basic labs, xray for osteo, will dose with IV antibiotics. I am going to ask surgery to come evaluate the toe given this is her 4th visit to the ED without any improvement. Differential Diagnosis Differential Diagnoses: The differential diagnosis associated with the presentation includes cellulitis, osteomyelitis, abscess Admission/Observation Consideration of admission/observation: Escalation of care including admission/observation considered Consult Healthcare Provider Management of the patient was discussed with: T[employer]er Lab Data [facility] Lab Attestation statement: I reviewed the patient's lab results. 08/19/22 07:22 08/19/22 07:22 Labs: Lab Results 08/19/22 08/19/22 08/19/22 Range/Units 07:22 07:22 07:22 WBC 4.0 L (4.8-10.8) X10*3/uL RBC 4.10 L (4.20-5.50) X10*6/uL Hgb 13.3 (12.0-16.0) g/dl Hct 40.1 (37.0-47.0) % MCV 97.8 (80.0-98.0) fL MCH 32.4 (27.0-33.0) pg MCHC 33.2 (31.0-35.0) g/dl RDW 13.1 (11.0-16.0) % Plt Count 223 (160-400) X10*3/uL MPV 10.1 (9.4-12.3) fL Immature Gran % (Auto) 0.5 H (0.0-0.4) % Neut % (Auto) 67.2 (45-73) % Lymph % (Auto) 19.9 L (20-40) % [place] % (Auto) 9.2 (2-11) % Eos % (Auto) 2.0 (0-4) % Baso % (Auto) 1.2 (0-2) % Lymph # (Auto) 0.8 L (1.2-4.9) X10*3/uL [place] # (Auto) 0.4 (0.1-1.2) X10*3/uL Eos # (Auto) 0.1 (0.0-0.4) X10*3/uL Baso # (Auto) 0.1 (0.0-0.2) X10*3/uL Abs Immat Gran (auto) 0.02 (0.00-0.03) X10*3/uL Absolute Neuts (auto) 2.7 (2.0-8.3) x10*3/uL Absolute Nucleated RBC 0.000 (0.0-0.012) X10*3/uL Nucleated RBC % (auto) 0.0 (0.0-0.2) /100WBC ESR 8 (0-20) MM/HR Sodium 143 (135-145) mmol/L Potassium 4.2 (3.3-5.1) mmol/L Chloride 108 (96-108) mmol/L Carbon Dioxide 28 (22-29) mmol/L Anion Gap 11 L (12-20) BUN 21 H (9-16) mg/dL Creatinine 0.65 (0.5-1.4) mg/dL Estim Creat Clear Calc 57.0 Estimated GFR > 60 Random Glucose 88 (60-115) mg/dL Lactic Acid (0.5-2.0) mmol/L Uric Acid (2.4-5.7) mg/dL Calcium 9.4 (8.4-10.2) mg/dL C-Reactive Protein < 0.10 (< or = 0.50) mg/dL COVID-19 ([facility]FI) (Negative) COVID-19 Clin Com 08/19/22 08/19/22 08/19/22 Range/Units 07:22 07:22 07:47 WBC (4.8-10.8) X10*3/uL RBC (4.20-5.50) X10*6/uL Hgb (12.0-16.0) g/dl Hct (37.0-47.0) % MCV (80.0-98.0) fL MCH (27.0-33.0) pg MCHC (31.0-35.0) g/dl RDW (11.0-16.0) % Plt Count (160-400) X10*3/uL MPV (9.4-12.3) fL Immature Gran % (Auto) (0.0-0.4) % Neut % (Auto) (45-73) % Lymph % (Auto) (20-40) % [place] % (Auto) (2-11) % Eos % (Auto) (0-4) % Baso % (Auto) (0-2) % Lymph # (Auto) (1.2-4.9) X10*3/uL [place] # (Auto) (0.1-1.2) X10*3/uL Eos # (Auto) (0.0-0.4) X10*3/uL Baso # (Auto) (0.0-0.2) X10*3/uL Abs Immat Gran (auto) (0.00-0.03) X10*3/uL Absolute Neuts (auto) (2.0-8.3) x10*3/uL Absolute Nucleated RBC (0.0-0.012) X10*3/uL Nucleated RBC % (auto) (0.0-0.2) /100WBC ESR (0-20) MM/HR Sodium (135-145) mmol/L Potassium (3.3-5.1) mmol/L Chloride (96-108) mmol/L Carbon Dioxide (22-29) mmol/L Anion Gap (12-20) BUN (9-16) mg/dL Creatinine (0.5-1.4) mg/dL Estim Creat Clear Calc Estimated GFR Random Glucose (60-115) mg/dL Lactic Acid 1.5 (0.5-2.0) mmol/L Uric Acid 4.1 (2.4-5.7) mg/dL Calcium (8.4-10.2) mg/dL C-Reactive Protein (< or = 0.50) mg/dL COVID-19 ([facility]FI) Negative (Negative) COVID-19 Clin Com See Note Independent Interpretation I performed an independent interpretation of an: Plain X-Ray Radiology Impression Discussion of test interpretation with radiology: I have reviewed the radiologist's reading. External Record Review External record reviewed: Inpatient record and Office record Prescription Management I considered prescription management with: Antibiotic Discharge Plan Discharge Clinical Impression: Non-healing open wound of toe Qualifiers: Encounter type: subsequent encounter Qualified Code(s): S91.109D - Unspecified open wound of unspecified toe(s) without damage to nail, subsequent encounter Patient Disposition: Home, Self-Care Instructions: Wound Infection (ED) Additional Instructions: return to ED for any worsening symptoms or concerns return for fevers, red streaks up foot, keep wound clean and dry, change dressing daily. continue the antibiotics. take a probiotic over the counter while on antibiotics. labs and xray were normal today. wound culture was sent off call Dr. Farias and follow up in the office in 1 week Prescriptions: No Action rosuvastatin 10 mg tablet 10 mg PO DAILY Qty: 90 3RF epinephrine [EpiPen 2-Kevin] 0.3 mg/0.3 mL auto-injector 0.3 mg IM Q15M PRN (Reason: anaphylaxis) Qty: 2 3RF Rx Instructions: for 3 doses clotrimazole 1 % ointment 1 appl topical BID 14 Days Qty: 56.7 0RF doxycycline hyclate 100 mg tablet 100 mg PO BID 7 Days Qty: 14 0RF cephalexin 500 mg capsule 500 mg PO BID 7 Days Qty: 14 0RF doxycycline hyclate 100 mg capsule 100 mg PO BID 7 Days Qty: 14 0RF cholecalciferol (vitamin D3) 50 mcg (2,000 unit) capsule 50 mcg PO DAILY omega-3 fatty acids 1,250 mg capsule 1,250 mg PO DAILY Referrals: Riki Farias MD [Physician] - 1 week (call and schedule appointment) Interventions: ED Discharge Assessment Last Done: 08/19/22 10:48 Discharge Date/Time: 08/19/22 10:49
[2022-08-19 07:29] LABS: MANUAL DIFF FLAG NO
[2022-08-19 07:31] LABS: Basophils Absolute Auto 0.1 X10*3/uL (0.0-0.2); Basophils Percent Auto 1.2 % (0-2); Eosinophils Absolute Auto 0.1 X10*3/uL (0.0-0.4); Hematocrit 40.1 % (37.0-47.0); Hemoglobin 13.3 g/dl (12.0-16.0); Imm Gran Abs Auto 0.02 X10*3/uL (0.00-0.03); Imm Gran Pct Auto 0.5 % (0.0-0.4); Lymphocytes Absolute Auto 0.8 X10*3/uL (1.2-4.9); Lymphocytes Percent Auto 19.9 % (20-40); Mean Corpuscular HGB Conc 33.2 g/dl (31.0-35.0); Mean Corpuscular Hemoglobin 32.4 pg (27.0-33.0); Mean Corpuscular Volume 97.8 fL (80.0-98.0); Mean Platelet Volume 10.1 fL (9.4-12.3); Monocytes Absolute Auto 0.4 X10*3/uL (0.1-1.2); Monocytes Percent Auto 9.2 % (2-11); Neutrophils Absolute Auto 2.7 x10*3/uL (2.0-8.3); Neutrophils Percent Auto 67.2 % (45-73); Platelet Count 223 X10*3/uL (160-400); Red Cell Distribution Width 13.1 % (11.0-16.0)
[2022-08-19 07:46] LABS: Lactic Acid 1.5 mmol/L (0.5-2.0)
[2022-08-19 07:48] LABS: Anion Gap 11 (12-20); Blood Urea Nitrogen 21 mg/dL (9-16); C Reactive Protein < 0.10 mg/dL (< or = 0.50); Calcium 9.4 mg/dL (8.4-10.2); Carbon Dioxide 28 mmol/L (22-29); Chloride 108 mmol/L (96-108); Estimated Glomerular Filt Rate > 60; Glucose Random 88 mg/dL (60-115); Potassium 4.2 mmol/L (3.3-5.1); Sodium 143 mmol/L (135-145)
[2022-08-19 07:50] LABS: Uric Acid 4.1 mg/dL (2.4-5.7)
[2022-08-19 08:09] LABS: Erythrocyte Sedimentation Rate 8 MM/HR (0-20)
[2022-08-19 08:20] LABS: COVID-19 Test Negative (Negative); IDNOW Serial# 16C4AD1C
[2022-08-19] MEDS: Piperacillin Sodium/Tazobactam 3.375 GM in 0.9 % Sodium Chloride 50 ML IV (08:35)
[2022-08-19] MEDS: vancomycin HCL 1,500 MG in 0.9 % Sodium Chloride 500 ML 333.33 MG IV (08:53)
[2022-08-19 09:00] VITALS: BP 116/70; PULSE 81; RESP 16; TEMP 36.8; O2SAT 98
--- NOTE | 2022-08-19 09:10 | PM.CNGS ---
History of Present Illness Consult details Consult date: 08/19/22 Narrative: 81-year-old female referred to me for persistent to infection. She had undergone partial removal of the will aspect of the toenail on the big toe with the survey instrument operator last 07/31/2022. She says this was done for an ingrown toenail. However, since that time, she has had persistent swelling of the area. She had been to the emergency room 2-3 times already because of this. She has had been on different antibiotics. She denies any drainage. She says that because of the persistent swelling and redness, she came back to the ER this morning as she was unable to get hold of the survey instrument operator. She denies any fever or chills. She is not a diabetic. She is not a smoker. Review of Systems Constitutional: Constitutional: Denies chills and Denies fever(s) Cardiovascular: Cardiovascular: Denies chest pain, Denies dyspnea and Denies dyspnea on exertion Respiratory: Respiratory: Denies cough, Denies dyspnea and Denies dyspnea on exertion Gastrointestinal: Gastrointestinal: Denies hematochezia and Denies change in bowel habits Genitourinary: Genitourinary: Denies hematuria Musculoskeletal: Musculoskeletal: Denies back pain and Denies limited range of motion Neurologic: Denies focal weakness and Denies convulsions Psychiatric: Psychiatric: Denies depression and Denies mood swings PMF Past Medical History Medical History (Updated 08/19/22 @ 09:12 by Riki Farias MD) Atherosclerotic cardiovascular disease Bee sting allergy H/O exertional chest pain Non-healing skin lesion Osteopenia of left hip Osteoporosis of lumbar spine Toe infection Family History Family History Father Prostate cancer Mother Essential hypertension Coronary artery disease Stroke Brother Pancreatic cancer Surgical History Surgical History History of kidney surgery Social History Social History Housing: House Alcohol intake: never Patient Tobacco Use Status: Never used Tobacco Smoked in Last 30 Days: No e-Cigarette/Vaping Use: Never Used Use of substances other than those prescribed or required for medical reasons: No Advance Directives: Yes Advance Directives on File: Yes Advance Directives Date on File: 07/05/22 Current occupational status: retired Cognitive needs: No Hearing needs: No Vision needs: Yes Meds Allergies Allergy/AdvReac Type Severity Reaction Status Date / Time bees Allergy Unknown swelling Uncoded 08/18/22 21:52 lipitor AdvReac Unknown abnormal Uncoded 08/18/22 21:52 LFTs Home Medications Medication Instructions Recorded Confirmed Last Taken Type cholecalciferol (vitamin D3) 50 50 mcg PO DAILY 10/12/20 08/18/22 Unknown History mcg (2,000 unit) capsule omega-3 fatty acids 1,250 mg 1,250 mg PO DAILY 10/12/20 08/18/22 Unknown History capsule Physical Exam Vital Signs: Vital Signs: Last Vital Signs Temp 98.3 F 08/19/22 09:00 Pulse 81 08/19/22 09:00 Resp 16 08/19/22 09:00 BP 116/70 08/19/22 09:00 Pulse Ox 98 08/19/22 09:00 O2 Del Method 08/19/22 09:00 BMI result Body Mass Index 23.0 Const: General: comfortable and no acute distress Orientation/consciousness: patient oriented x3 Neck: Neck: Yes no lymphadenopathy Resp: Auscultation: clear to auscultation bilaterally Cardio: Rhythm: regular rhythm GI: Palpation (GI): Soft to palpation, nontender and no guarding Neuro: General: patient oriented x3 Extrem: Other: Right big toe with the medial aspect of the toenail partial removed, with surrounding edema and redness, swelling and tenderness, question fluctuance Results Labs 08/19/22 07:22 08/19/22 07:22 Labs: Abnormal lab results 08/19/22 08/19/22 Range/Units 07:22 07:22 WBC 4.0 L (4.8-10.8) X10*3/uL RBC 4.10 L (4.20-5.50) X10*6/uL Immature Gran % (Auto) 0.5 H (0.0-0.4) % Lymph % (Auto) 19.9 L (20-40) % Lymph # (Auto) 0.8 L (1.2-4.9) X10*3/uL Anion Gap 11 L (12-20) BUN 21 H (9-16) mg/dL Short CBC 08/19/22 Range/Units 07:22 WBC 4.0 L (4.8-10.8) X10*3/uL Hgb 13.3 (12.0-16.0) g/dl Hct 40.1 (37.0-47.0) % Plt Count 223 (160-400) X10*3/uL [facility] 08/19/22 07:22 Sodium 143 Potassium 4.2 Chloride 108 Carbon Dioxide 28 BUN 21 H Creatinine 0.65 Calcium 9.4 All other labs normal. Assessment and Plan (1) Toe infection: Status: Acute Plan She has had this persistent swelling on the right big toe on the area of the toenail that had been partially removed. I explained to her therefore that it may be best to do an I and D to make sure there is no abscess on the area as there is significant swelling and redness. I explained the technique of this procedure as well as the risks, benefits, and alternatives and had given consent This big toe was prepped and draped. Lidocaine 1% was used for a digital block. I made an incision on the skin overlying this swollen area medial aspect of the toe surrounding the toenail all the way to the base. This was done using blade 15. There was no significant drainage I did cultures of the area. I then wrapped the toe with gauze as well as a Emerson roll. She tolerated procedure well. There were no immediate complications. I told her that hopefully this will help with the infection but I will see her in the office down the line for follow-up in 1-2 weeks. I had given her wound care instructions which will be just dry dressing changes daily. She can take Tylenol and ibuprofen for the pain I have discussed the above with the ER physician. Time Spent With Patient Time: Total time managing care of this patient today ____ minutes. Procedures Date of Service Date of Service: 08/19/22
[2022-08-19] MEDS: Lidocaine HCl 1 % 20 ML VIAL SUBCUT (09:32)
== END 2022-08-19 10:49 | disposition home or self-care (01) ==
PROVIDERS: Emergency Provider Emergency Medicine; PCP Internal Medicine
DX: S91.101A Unspecified open wound of right great toe without damage to nail, initial encounter (principal); W45.8XXA Other foreign body or object entering through skin, initial encounter; L03.031 Cellulitis of right toe; M79.674 Pain in right toe(s); Z20.822 Contact with and (suspected) exposure to COVID-19; E78.5 Hyperlipidemia, unspecified; Z79.02 Long term (current) use of antithrombotics/antiplatelets; Z79.899 Other long term (current) drug therapy; Y93.E8 Activity, other personal hygiene; Y92.531 Health care provider office as the place of occurrence of the external cause; Y99.8 Other external cause status
CPT/HCPCS: 10060; 36415; 73660; 80048; 83605; 84550; 85025; 85652; 86140; 87040; 87070; 87205; 87635; 96365; 96367; 99284; J2543; J3371

== ENCOUNTER → 2022-08-28 09:30 | Outpatient (BNVA) | payer MEDICARE, OTHER, SELFPAY | PROVIDERS: PCP Internal Medicine; Visit Provider Surgery | DX: L08.9 Local infection of the skin and subcutaneous tissue, unspecified (principal) | CPT/HCPCS: 99212 ==

== ENCOUNTER → 2022-09-18 15:10 | Outpatient (BNVA) | payer MEDICARE, OTHER, SELFPAY | PROVIDERS: PCP Internal Medicine; Visit Provider Surgery | DX: L08.9 Local infection of the skin and subcutaneous tissue, unspecified (principal) | CPT/HCPCS: 99212 ==

== ENCOUNTER 2022-11-19 08:30 | Outpatient (REF) | payer MEDICARE, SELFPAY ==
[2022-11-19 09:51] LABS: Alanine Aminotransferase 13 U/L (0-31); Anion Gap 10 (12-20); Aspartate Amino Transferase 29 U/L (5-31); Blood Urea Nitrogen 18 mg/dL (9-16); Calcium 9.6 mg/dL (8.4-10.2); Carbon Dioxide 31 mmol/L (22-29); Chloride 104 mmol/L (96-108); Cholesterol 187 mg/dL; Estimated Glomerular Filt Rate > 60; Glucose Fasting 99 mg/dL (60-99); HDL Cholesterol 72 mg/dL; LDL Cholesterol Calculated 101 mg/dl; Potassium 4.7 mmol/L (3.3-5.1); Sodium 140 mmol/L (135-145); Triglycerides 70 mg/dL
[2022-11-19 10:14] LABS: Vitamin D 25-OH Total 63.5 ng/mL (>30)
== END 2022-11-19 08:31 | disposition home or self-care (01) ==
LOC: HO.LAB 08:30
PROVIDERS: PCP Internal Medicine; Visit Provider Internal Medicine
DX: E78.5 Hyperlipidemia, unspecified (principal); I25.10 Atherosclerotic heart disease of native coronary artery without angina pectoris; M81.0 Age-related osteoporosis without current pathological fracture; Z78.0 Asymptomatic menopausal state
CPT/HCPCS: 36415; 80048; 80061; 82306; 84450; 84460

== ENCOUNTER 2023-03-11 09:31 | Outpatient (REF) | payer MEDICARE, SELFPAY ==
[2023-03-11 13:25] LABS: MANUAL DIFF FLAG NO
[2023-03-11 13:38] LABS: Basophils Absolute Auto 0.1 X10*3/uL (0.0-0.2); Basophils Percent Auto 1.1 % (0-2); Eosinophils Absolute Auto 0.1 X10*3/uL (0.0-0.4); Eosinophils Percent Auto 1.6 % (0-4); Hematocrit 44.2 % (37.0-47.0); Hemoglobin 14.2 g/dl (12.0-16.0); Imm Gran Abs Auto 0.01 X10*3/uL (0.00-0.03); Imm Gran Pct Auto 0.2 % (0.0-0.4); Lymphocytes Absolute Auto 1.2 X10*3/uL (1.2-4.9); Lymphocytes Percent Auto 27.4 % (20-40); Mean Corpuscular HGB Conc 32.1 g/dl (31.0-35.0); Mean Corpuscular Hemoglobin 31.7 pg (27.0-33.0); Mean Corpuscular Volume 98.7 fL (80.0-98.0); Mean Platelet Volume 10.6 fL (9.4-12.3); Monocytes Absolute Auto 0.4 X10*3/uL (0.1-1.2); Monocytes Percent Auto 9.6 % (2-11); Neutrophils Absolute Auto 2.7 x10*3/uL (2.0-8.3); Neutrophils Percent Auto 60.1 % (45-73); Platelet Count 231 X10*3/uL (160-400); Red Blood Count 4.48 X10*6/uL (4.20-5.50); Red Cell Distribution Width 13.1 % (11.0-16.0); White Blood Count 4.5 X10*3/uL (4.8-10.8)
[2023-03-11 14:37] LABS: Alanine Aminotransferase 10 U/L (0-31); Aspartate Amino Transferase 27 U/L (5-31); Cholesterol 182 mg/dL (<200); Glucose Fasting 92 mg/dL (60-99); HDL Cholesterol 70 mg/dL (>40); LDL Cholesterol Calculated 96 mg/dL (<100); Triglycerides 82 mg/dL (<150)
[2023-03-11 14:57] LABS: Vitamin D 25-OH Total 80.4 ng/mL (>30)
== END 2023-03-11 09:32 | disposition home or self-care (01) ==
LOC: HO.HMGCLDS 09:31
PROVIDERS: PCP Internal Medicine; Visit Provider Internal Medicine
DX: Z13.1 Encounter for screening for diabetes mellitus (principal); E78.5 Hyperlipidemia, unspecified; I25.10 Atherosclerotic heart disease of native coronary artery without angina pectoris; M81.0 Age-related osteoporosis without current pathological fracture; D72.819 Decreased white blood cell count, unspecified; Z78.0 Asymptomatic menopausal state; Z86.39 Personal history of other endocrine, nutritional and metabolic disease
CPT/HCPCS: 36415; 80061; 82306; 82947; 84450; 84460; 85025

== ENCOUNTER 2023-04-18 11:38 | Outpatient (AMB) | payer MEDICARE, SELFPAY ==
--- NOTE | 2023-04-18 12:08 | A.OFFPC_ITS ---
Vital Signs 04/18/23 12:42 Height 5 ft 3 in Weight 13 lb BMI 2.3 BP 118/60 Blood Pressure Location Rt brachial Position Sitting Pulse 75 Pulse Source Pulse Oximeter Pulse Oximetry (%) 97 Oxygen Delivery Method Room Air Intake Visit Reasons: 6 month Follow up Intake Note: Pt is here today for her 6 months f/u Allergies bees Allergy (Unknown, Uncoded 04/18/23 12:51) swelling lipitor Adverse Reaction (Unknown, Uncoded 04/18/23 12:51) abnormal LFTs Medication List - Last Reconciled 04/18/23 by Juliana Esparza MD cholecalciferol (vitamin D3) 50 mcg PO DAILY clotrimazole 1% 1 appl topical BID 2 weeks epinephrine (EpiPen 2-Kevin) 0.3 mg (0.3 mL) IM Q15M PRN omega-3 fatty acids 1,250 mg PO DAILY rosuvastatin 10 mg PO DAILY Tobacco use date assessed: 04/18/23 Fall risk assessment: No Falls in past year Last assessed Fall Risk: 04/18/23 Dental Screening Dental Screen Date: 04/18/23 Did you have a dental visit in the last 12 months?: Yes Did you have a dental problem in the last 6 months where you did not have access to dental care?: No Was dental information given to patient?: Patient has dentist HPI HPI Comments History of Present Illness Details 82-year-old lady with hyperlipidemia, os teoporosis, , here today for follow-up. She has been compliant with taking her medications, stays active, exercises regularly walks with her granddaughter daily and has been eating healthy diet, eats vegetables and fish in LEs meat and carbohydrate. Has been feeling well with no complaints at present time. [facility] Medical History Toe infection Non-healing skin lesion Atherosclerotic cardiovascular disease H/O exertional chest pain Osteoporosis of lumbar spine Osteopenia of left hip Bee sting allergy Surgical History History of kidney surgery Family History Father Prostate cancer Mother Essential hypertension Coronary artery disease Stroke Brother Pancreatic cancer Social History Housing: House Alcohol intake: never Patient Tobacco Use Status: Never used Tobacco e-Cigarette/Vaping Use: Never Used Advance Directives Date on File: 07/05/22 Current occupational status: retired Cognitive needs: No Hearing needs: No Vision needs: Yes Questionnaire Thrive Questionnaire Date Thrive assessed: 12/20/22 AUDIT C Alcohol Use Questionnaire (AUDIT-C) 1. How often do you have a drink containing alcohol?: Never Total Score: 0 ANTWON-7 AMB Questionnaire ANTWON-7 Date ANTWON - 7 assessed: 12/20/22 Source: Developed by Drs. Jeffrey Cleaning, Liyah Devi, Jesus Self and colleagues, with an educational jose from [employer]. Review of Systems Const Denies chills, Denies fever(s) and Denies weakness ENT Reports no additional complaints Card Denies chest pain, Denies leg edema, Denies lightheadedness, Denies palpitations and Denies dyspnea Resp Denies cough and Denies dyspnea GI Denies hematochezia and Denies change in bowel habits Musc Denies abnormal gait, Denies muscle weakness, Denies numbness, Denies radiating pain into limb and Denies tingling Neuro Denies abnormal gait, Denies numbness, Denies tingling and Denies weakness Endo Denies palpitations Physical exam (Primary Care) Vital Signs: Last Vital Signs Pulse 75 04/18/23 12:42 BP 118/60 04/18/23 12:42 Pulse Ox 97 04/18/23 12:42 Oxygen Delivery Method Room Air 04/18/23 12:42 BMI result Body Mass Index 2.3 Tobacco/Smoking Status: Tobacco use Status Tobacco use date assessed 04/18/23 04/18/23 12:11 Patient Tobacco Use Status Never used Tobacco 04/18/23 12:11 e-Cigarette/Vaping Use Never Used 04/18/23 12:11 Thrive Assessment: Date of Thrive Assessment Date Thrive assessed 12/20/22 04/18/23 12:11 Const Other: Alert oriented x3, no acute distress noted, ambulatory with normal gait Orientation/consciousness: patient oriented x3 HENMT Mouth: Normal oral and palatal mucosa present, oropharynx normal and moist mucous membranes Eyes General: appearance normal, both eyes and all related structures Neck Neck: Yes full ROM, Yes no lymphadenopathy and Yes supple Resp Auscultation: clear to auscultation bilaterally Cardio Other: S1-S2 present regular rate and rhythm GI Palpation (GI): Soft to palpation, nontender and no guarding Auscultation: normal bowel sounds Neuro General: patient oriented x3, gait normal, tone normal, moves all extremities, Normal light touch and pain sensation, no focal motor deficits and CN's II-XI intact bilaterally Extrem General: Yes full ROM, Yes no clubbing, cyanosis or edema, Yes no calf tenderness and Yes normal gait Results Reviewed Results Reviewed: ENTERED: 03/11/[address]: ORDERED: CBC Auto Diff Test Result Flag Reference Site WBC 4.5 L 4.8-10.8 X10*3/uL RBC 4.48 4.20-5.50 X10*6/uL HGB 14.2 12.0-16.0 g/dl HCT 44.2 37.0-47.0 % MCV 98.7 H 80.0-98.0 fL MCH 31.7 27.0-33.0 pg MCHC 32.1 31.0-35.0 g/dl RDW 13.1 11.0-16.0 % PLT 231 160-400 X10*3/uL ENTERED: 03/11/[address]: ORDERED: Glu Fasting, AST, ALT, Lipid Panel, Vitamin D 25-OH Test Result Flag Reference Site FBS 92 60-99 mg/dL AST (GOT) 27 5-31 U/L ALT (GPT) 10 0-31 U/L Triglyceride 82 <150 mg/dL Desirable Triglyceride: less than 150 mg/dL Borderline High Triglyceride 150-199 mg/dL High Triglyceride: 200-499 mg/dL Very High Triglyceride: greater than or equal to 5OO mg/dL Cholesterol 182 <200 mg/dL Desirable Cholesterol: less than 200 mg/dL Borderline High Cholesterol: 200-239 mg/dL High Cholesterol: greater than 239 mg/dL LDL Calculated 96 <100 mg/dL Desirable LDL: less than 100 mg/dL Near Optimal/Above Optimal LDL: 110-129 mg/dL Borderline High LDL: 130-159 mg/dL High LDL: 160-189 mg/dL Very High LDL: greater than or equal to 190 mg/dL HDL 70 >40 mg/dL Desirable HDL: greater than 40 mg/dL Note: This HDL assay may give artificially low results in patients with liver disease. Vit D 25-OH Tot 80.4 >30 ng/mL Health Based Reference Values* < 20 ng/mL Deficient 20-30 ng/mL Insufficient > 30 ng/mL Sufficient Assessment and Plan Assessment & Plan (1) Osteoporosis of lumbar spine: Code(s): M81.0 - Age-related osteoporosis without current pathological fracture Plan: Stressed importance of doing regular weight-bearing exercise, continue taking calcium through dietary sources and take adequate vitamin-D 3 supplements continue with 50 mcg daily. Will schedule a bone density scan to be done together with her mammogram next year (2) Atherosclerotic cardiovascular disease: Comment: coronary CTA, she had minimal plaque in the LAD and RCA. Nothing hemodynamically significant. Code(s): I25.10 - Atherosclerotic heart disease of [place] coronary artery without angina pectoris Plan: Continue rosuvastatin , [place] 3 fatty acid supplements, in addition to adhering to healthy eating habits (3) Dyslipidemia: Code(s): E78.5 - Hyperlipidemia, unspecified Plan: Reviewed recent fasting lipid profile with patient with levels within normal limits . Continue with rosuvastatin 10 mg daily and [place] 3 fatty acid supplements , in addition to adherence to low-cholesterol diet and regular exercise, at least 30 minutes 3 to 4 times a week. Advised patient to make healthy food choices, eat more fruits, vegetables, whole grains, wild caught fish and low-fat dairy. Limit amount of meat and fried or fatty food products, as well as processed foods and fast foods. Follow-up scheduled with repeat fasting lipid panel in 6 months. Orders: Orders XR DEXA axial skeleton 09/05/23 M81.0 - Age-related osteoporosis without current pathological fracture, Z12.31 - Encounter for screening mammogram for malignant neoplasm of breast, Z78.0 - Asymptomatic menopausal state Alanine Aminotransferase 10/06/23 E78.5 - Hyperlipidemia, unspecified, I25.10 - Atherosclerotic heart disease of [place] coronary artery without angina pectoris, M81.0 - Age-related osteoporosis without current pathological fracture, R73.01 - Impaired fasting glucose Basic Metabolic Panel Fasting 10/06/23 E78.5 - Hyperlipidemia, unspecified, I25.10 - Atherosclerotic heart disease of [place] coronary artery without angina pectoris, M81.0 - Age-related osteoporosis without current pathological fracture, R73.01 - Impaired fasting glucose Lipid Panel 10/06/23 E78.5 - Hyperlipidemia, unspecified, I25.10 - Atherosclerotic heart disease of [place] coronary artery without angina pectoris, M81.0 - Age-related osteoporosis without current pathological fracture, R73.01 - Impaired fasting glucose MM screening mammo BI 09/05/23 M81.0 - Age-related osteoporosis without current pathological fracture, Z12.31 - Encounter for screening mammogram for malignant neoplasm of breast, Z78.0 - Asymptomatic menopausal state Aspartate Amino Transferase 10/06/23 E78.5 - Hyperlipidemia, unspecified, I25.10 - Atherosclerotic heart disease of [place] coronary artery without angina pectoris, M81.0 - Age-related osteoporosis without current pathological fracture, R73.01 - Impaired fasting glucose Vitamin D 25-OH Total 10/06/23 E78.5 - Hyperlipidemia, unspecified, I25.10 - Atherosclerotic heart disease of [place] coronary artery without angina pectoris, M81.0 - Age-related osteoporosis without current pathological fracture, R73.01 - Impaired fasting glucose Coding Level of Care Code Est Pt Level 4 (60650) Diagnoses Osteoporosis of lumbar spine M81.0 Atherosclerotic cardiovascular disease I25.10 Dyslipidemia E78.5
[2023-04-18 12:42] VITALS: BP 118/60; PULSE 75; O2SAT 97
== END 2023-04-18 13:05 | disposition home or self-care (01) ==
PROVIDERS: PCP Internal Medicine; Visit Provider Internal Medicine
DX: M81.0 Age-related osteoporosis without current pathological fracture (principal); I25.10 Atherosclerotic heart disease of native coronary artery without angina pectoris; E78.5 Hyperlipidemia, unspecified
CPT/HCPCS: 99214

== ENCOUNTER 2023-08-13 12:50 | Outpatient (REF) | payer MEDICARE, OTHER, SELFPAY ==
--- NOTE | ~2023-08-13 | MM_ITS ---
EXAMINATION: BONE DENSITOMETRY CLINICAL INDICATION: Age-related osteoporosis without current pathological fracture. COMPARISON: Previous BD dated 08/07/2021 and baseline BD dated 05/20/2005. TECHNIQUE: Using a [employer] DXA System (software version: 13.1) manufactured by [employer], dual-energy x-ray absorptiometry was performed of the lumbar spine and left hip. The images are of good technical quality. Summary results are attached. FINDINGS: LEFT FEMUR, NECK: Current: BMD 0.786 g/cm2, Z-score 0.5, T-score -1.8, osteopenia. Prior: BMD 0.778 g/cm2. Baseline: BMD 0.813 g/cm2. LEFT FEMUR, TOTAL: Current: BMD 0.821 g/cm2, Z-score 0.7, T-score -1.5, osteopenia, 0.0% no change from previous, 8.6% decrease from baseline (<5% change is not significant). Prior: BMD 0.821 g/cm2. Baseline: BMD 0.898 g/cm2. AP SPINE L1-L4: Current: BMD 0.894 g/cm2, Z-score -0.4, T-score -2.4, osteopenia, 3.0% increase from previous, 12.5% decrease from baseline (<5% change is not significant). Prior: BMD 0.868 g/cm2. Baseline: BMD 1.022 g/cm2. IDENTIFIED RISK FACTORS: Bilateral oophorectomy, menopause. HISTORY OF FRACTURE: None listed. MEDICATIONS: Calcium, multivitamin, vitamin D. MM/XR DEXA axial skeleton IMPRESSION: 1. DIAGNOSIS: Osteopenia based on the lowest T-score value of -2.4 in the lumbar spine applying World Health Organization criteria. 2. 10-YEAR FRACTURE RISK PREDICTION, FRAX: Major osteoporotic fracture (clinical spine, forearm, hip or shoulder) 15.3%. Hip fracture 4.4%. 3. Treatment Recommendations: NOF guidelines recommend consideration for treatment in postmenopausal women and men age 50 and older presenting with the following: -A hip or vertebral (clinical or morphometric) fracture. -T-score less than or equal to -2.5 at the femoral neck or spine after appropriate evaluation to exclude secondary causes. -Low bone mass at the hip or spine and a 10-year fracture probability by FRAX of greater than or equal to 3% for hip fracture or greater than or equal to 20% for major osteoporotic fracture based on the [place] adapted WHO algorithm. 4. Other Recommendations: All treatment decisions require clinical judgment and consideration of individual patient factors, including patient preferences, comorbidities, previous drug use, risk factors not captured in the FRAX model (e.g. frailty, falls, vitamin D deficiency, increased bone turnover, interval significant decline in bone density) and possible under or overestimation of fracture risk by FRAX. Additional medical evaluation for secondary cause of low bone mineral density may be appropriate. FUTURE SCAN RECOMMENDATION: People with diagnosed cases of osteoporosis or at high risk for fracture should have regular bone mineral density tests. For patients eligible for Medicare, routine testing is allowed once every 2 years. The testing frequency can be increased to one year for patients who have rapidly progressing disease, those who are receiving or discontinuing medical therapy to restore bone mass, or have additional risk factors.
== END 2023-08-13 12:51 | disposition home or self-care (01) ==
LOC: HO.MAMMO 12:50
PROVIDERS: PCP Internal Medicine; Visit Provider Internal Medicine
DX: Z12.31 Encounter for screening mammogram for malignant neoplasm of breast (principal); M81.0 Age-related osteoporosis without current pathological fracture; Z78.0 Asymptomatic menopausal state; Z90.722 Acquired absence of ovaries, bilateral
CPT/HCPCS: 77080

== ENCOUNTER 2023-09-29 08:39 | Outpatient (REF) | payer MEDICARE, OTHER, SELFPAY ==
[2023-09-29 12:46] LABS: Alanine Aminotransferase 13 U/L (0-31); Anion Gap 10 (12-20); Aspartate Amino Transferase 28 U/L (5-31); Blood Urea Nitrogen 17 mg/dL (9-16); Calcium 9.6 mg/dL (8.4-10.2); Carbon Dioxide 31 mmol/L (22-29); Chloride 103 mmol/L (96-108); Cholesterol 186 mg/dL (<200); Estimated Glomerular Filt Rate > 60; Glucose Fasting 93 mg/dL (60-99); HDL Cholesterol 71 mg/dL (>40); LDL Cholesterol Calculated 94 mg/dL (<100); Potassium 4.2 mmol/L (3.3-5.1); Sodium 140 mmol/L (135-145); Triglycerides 106 mg/dL (<150)
[2023-09-29 13:13] LABS: Vitamin D 25-OH Total 47.4 ng/mL (>30)
== END 2023-09-29 08:40 | disposition home or self-care (01) ==
LOC: HO.HMGCLDS 08:39
PROVIDERS: PCP Internal Medicine; Visit Provider Internal Medicine
DX: M81.0 Age-related osteoporosis without current pathological fracture (principal); I25.10 Atherosclerotic heart disease of native coronary artery without angina pectoris; E78.5 Hyperlipidemia, unspecified; R73.01 Impaired fasting glucose
CPT/HCPCS: 36415; 80048; 80061; 82306; 84450; 84460

== ENCOUNTER 2023-10-13 08:15 | Outpatient (AMB) | payer MEDICARE, OTHER, SELFPAY ==
[2023-10-13 08:33] VITALS: BP 100/64; PULSE 82; O2SAT 95; BMI 25.2
--- NOTE | 2023-10-13 08:33 | A.OFFVIS_ITS ---
Intake Vital Signs 10/13/23 08:33 Height 5 ft 3 in Weight 142 lb BMI 25.2 BP 100/64 Blood Pressure Location Lt brachial Position Sitting Pulse 82 Pulse Source Pulse Oximeter Pulse Oximetry (%) 95 Oxygen Delivery Method Room Air Intake Visit Reasons: SWV G4039/Joe craft Intake Note: Pt is here today for her SWV: Bone density scan 08/13/23, colonoscopy 11/10/20, mammogram 04/26/19 Allergies bees Allergy (Unknown, Uncoded 10/13/23 08:53) swelling lipitor Adverse Reaction (Unknown, Uncoded 10/13/23 08:53) abnormal LFTs Medication List - Last Reconciled 10/13/23 by Juliana Craft MD cholecalciferol (vitamin D3) 50 mcg PO DAILY clotrimazole 1% 1 appl topical BID 2 weeks epinephrine (EpiPen 2-Kevin) 0.3 mg (0.3 mL) IM Q15M PRN omega-3 fatty acids 1,250 mg PO DAILY rosuvastatin 10 mg PO DAILY HPI SWV G4039/Joe craft HPI Details SWV ? 82 year old lady with history of hyperlipidemia, osteoporosis, presents for her subsequent Annual Wellness Visit. She had recent fasting lipid panel and fasting blood sugar done 09/29/2023 both of which showed normal findings. Her last mammogram was in 2019 which showed normal finding, patient states that she will schedule another mammogram screening for this year. No longer gets cervical cancer screenings, her last screening colonoscopy was done by Dr. Rae 11/10/2020 with removal of a tubular adenoma polyp, and is scheduled for a repeat colonoscopy again in 2025. She had a bone density scan done 08/15/2023 which showed improvement , no longer having osteoporosis in lumbar spine, now osteopenia in lumbar spine, femoral neck and left femur. She is up-to-date with her COVID vaccination including booster, gets yearly flu shots, up-to-date with her Prevnar 20 and Tdap, received only 1 dose of her Shingrix vaccine , reminded to get the 2nd dose. ? Medical / Social History Reviewed? Past Medical History ?Yes . ? [place] of Care / Care Team list updated ?Yes . ? Surgical/Hospitalization History ?Yes . ? Current Medications (including OTC and supplements) ?Yes . ? Family History ?Yes . ? Tobacco Control form ?Yes . ? AUDIT-C (Alcohol use) form ?Yes . ? Illicit drug use in Social History ?Yes . ? Current diagnosis of depression? ?No ? Appropriate PHQ2/PHQ9 completed ?Yes . ? Data entered by ?Photolettering Machine Operator and reviewed by provider ? Fall Risk ? Fall History? Have you had any falls with injury in the past year? ?No . ? Have you had two or more falls in the past year? ?No . ? Fall Risk Assessment: ?No falls in the past year . ? HRA filled out by the patient, reviewed by Provider and scanned. ?? SWV ? Balance? Romberg ?Yes . ? Tandem walk ?Yes . ? Walk and Turn ?Yes . ? Rise from sit to stand ?Yes . ?Vision? Corrective lens ?none ? Vision screen ? Up-to-date, goes to [facility] in [place] ?Hearing? Whisper test ?pass . ?Written Plan?Completed. See Patient Documents.? [facility] Medical History Osteopenia 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 Surgical History History of kidney surgery Family History Father Prostate cancer Mother Essential hypertension Coronary artery disease Stroke Brother Pancreatic cancer Social History Housing: House Alcohol intake: never Patient Tobacco Use Status: Never used Tobacco e-Cigarette/Vaping Use: Never Used Advance Directives Date on File: 07/05/22 Current occupational status: retired Cognitive needs: No Hearing needs: No Vision needs: Yes Questionnaire Medicare Wellness Checkup What is your age?: 80 or older What gender do you identify with?: female During the past 4 weeks, how much have you been bothered by emotional problems such as feeling anxious, depressed, irritable, sad or downhearted, and blue?: not at all During the past 4 weeks, has your physical & emotional health limited your social activities with family, friends, neighbors, or groups?: not at all During the past 4 weeks, how much bodily pain have you generally had?: no pain During the past 4 weeks, was someone available to help you if you needed & want ed help?: no, not at all During the past 4 weeks, what was the hardest physical activity you could do for at least 2 minutes?: moderate Can you get to places out of walking distance without help? (For eg., can you travel alone on buses, taxis or drive your car?): Yes Can you go shopping for groceries or clothes without someone's help?: Yes Can you prepare your own meals?: Yes Can you do your housework without help?: Yes Because of any health problems, do you need the help of another person with your personal care needs such as eating, bathing, dressing or getting around the house?: No Can you handle your own money without help?: Yes During the past 4 weeks, how would you rate your health in general?: very good During the past 4 weeks how have things been going for you?: pretty well Are you having difficulties driving your car?: no Do you always fasten your seat belt when you are in a car?: yes, usually During past 4 weeks, have you been bothered by the following: never: Sexual problems?, Trouble eating well? and Teeth or denture problems?, seldom: Falling or dizzy when standing up and sometimes: Problems using the telephone? and Tiredness or fatigue? Have you fallen 2 or more times in the past year?: No Are you afraid of falling?: No Are you a smoker?: no During the past 4 weeks, how many drinks of wine, beer, or other alcoholic beverages did you have?: no alcohol at all Do you exercise for about 20 minutes 3 or more times a week?: yes, all the time Have you been given information to help with the following?: yes: Keeping track of your medications? and no: Hazards in your house that might hurt you? How often do you have trouble taking medicines the way you have been told to take them?: I always take medicine as prescribed How confident are you that you can control & manage most of your health problems?: somewhat confident What is your race?: White Mini Mental State Exam (MMSE) Orientation What is the (year) (season) (date) (day) (month)?: year (2023), season (spring), date (10/13/2023), day (friday) and month (October) Where are we (state) (county) (town or city) (hospital) (floor)?[place] state ([place]), [facility] ([place]), town or city ([place]) and hospital/clinic ([facility]) Score Score: 9 Activity of Daily Living Bathing - sponge bath, tub bath or shower: receives no assistance (gets in/out by self, if usual bathing means Dressing - getting clothes from closets & drawers, including inner/outer garments & fasteners.: gets clothes & gets completely dressed without help Toileting - going to the 'toilet room' for urine/bowel elimination & cleaning self/arranging clothes: goes to toilet room, cleans self, arranges clothes without help Transfer: moves in & out of bed and chair without help (may use support object) Continence: controls urination/bowel movements completely by self Feeding: feeds self without help Total Score: 0 Information obtained from: patient Using telephone: independent Traveling: independent Shopping: independent Preparing meals: independent Housework: independent Taking medicine: independent Managing money: independent PHQ-9 Over the last 2 weeks, how often have you been bothered by any of the following problems? 1. Little interest or pleasure in doing things: not at all 2. Feeling down, depressed, or hopeless: not at all 3. Trouble falling or staying asleep, or sleeping too much: several days 4. Feeling tired or having little energy: several days 5. Poor appetite or overeating: not at all 6. Feeling bad about yourself - or that you are a failure or have let yourself or your family down: not at all 7. Trouble concentrating on things, such as reading the newspaper or watching television: not at all 8. Moving or speaking so slowly that other people could have noticed. Or the opposite - being so fidgety or restless that you have been moving around a lot more than usual: not at all 9. Thoughts that you would be better off or of hurting yourself in some way: not at all Total score: 2 Depression Screening Interpretation: Negative Depression Screening Done: Yes 09834 - PHQ-9 Billing: Yes Source: Developed by Drs. Jeffrey Cleaning, Liyah Devi, Jesus Self and colleagues, with an educational jose from [employer]. ANTWON-7 AMB Questionnaire ANTWON-7 Date ANTWON - 7 assessed: 10/13/23 Feeling nervous, anxious, or on edge: 0 = Not at all Not being able to stop or control worryin = Not at all Worrying too much about different things: 0 = Not at all Trouble relaxin = Not at all Being so restless that it is hard to sit still: 0 = Not at all Becoming easily annoyed or irritable: 0 = Not at all Feeling afraid as if something awful might happen: 0 = Not at all Total ANTWON-7 score (0-4 normal; 5-9 mild; 10-14 moderate; 15-21 severe): 0 Source: Developed by Drs. Jeffrey Cleaning, Liyah Devi, Jesus Self and colleagues, with an educational jose from [employer]. ANTWON-7 Assessment Billing ANTWON-7 Assessment Tool: ANTWON-7 Assessment 10212 Physical Exam Vital Signs: Last Vital Signs Pulse 82 10/13/23 08:33 BP 100/64 10/13/23 08:33 Pulse Ox 95 10/13/23 08:33 Oxygen Delivery Method Room Air 10/13/23 08:33 BMI result Body Mass Index 25.2 Results Reviewed Results Reviewed: Name: Vidhi Dunham Age/Sex: 82/F : 1940 Unit#: [id number] Attend Dr: Juliana Craft MD Re09/29/23 Status: DEP REF Location: [facility] Disch: SPEC : [id number] JOSEE: 09/29/23 STATUS: COMP REQ : [id number] RECD: 09/29/[address]: Juliana Craft MD COMP: 09/29/23 ENTERED: 09/29/[address]: ORDERED: Met Prof Fast, AST, ALT, Lipid Panel, Vitamin D 25-OH Test Result Flag Reference Sodium 140 135-145 mmol/L Potassium 4.2 3.3-5.1 mmol/L CL 103 96-108 mmol/L CO2 31 H 22-29 mmol/L Gap 10 L 12-20 BUN 17 H 9-16 mg/dL Creat 0.74 0.5-1.4 mg/dL EGFR > 60 NOTE: For -Citizen Of [place] individuals, multiply the result by 1.210. Chronic Kidney Disease: Estimated GFR < 60 mL/min/1.73m2 Severe Kidney Disease: Estimated GFR < 15 mL/min/1.73m2 FBS 93 60-99 mg/dL CA 9.6 8.4-10.2 mg/dL AST (GOT) 28 5-31 U/L ALT (GPT) 13 0-31 U/L Triglyceride 106 <150 mg/dL Desirable Triglyceride: less than 150 mg/dL Borderline High Triglyceride 150-199 mg/dL High Triglyceride: 200-499 mg/dL Very High Triglyceride: greater than or equal to 5OO mg/dL Cholesterol 186 <200 mg/dL Desirable Cholesterol: less than 200 mg/dL Borderline High Cholesterol: 200-239 mg/dL High Cholesterol: greater than 239 mg/dL LDL Calculated 94 <100 mg/dL Desirable LDL: less than 100 mg/dL Near Optimal/Above Optimal LDL: 110-129 mg/dL Borderline High LDL: 130-159 mg/dL High LDL: 160-189 mg/dL Very High LDL: greater than or equal to 190 mg/dL HDL 71 >40 mg/dL Desirable HDL: greater than 40 mg/dL Note: This HDL assay may give artificially low results in patients with liver disease. Vit D 25-OH Tot 47.4 >30 ng/mL Health Based Reference Values* < 20 ng/mL Deficient 20-30 ng/mL Insufficient > 30 ng/mL Sufficient Assessment & Plan Assessment & Plan (1) Encounter for subsequent annual wellness visit (AWV) in Medicare patient: Code(s): Z00.00 - Encounter for general adult medical examination without abnormal findings Plan: Medical wellness checklist reviewed, discussed with patient and updated. Reminded to get her 2nd dose of Shingrix vaccine. She has already completed her MOLST and healthcare proxy forms and is scanned into chart (2) Dyslipidemia: Code(s): E78.5 - Hyperlipidemia, unspecified Plan: Reviewed recent fasting lipid profile with patient with levels within normal . Continue with rosuvastatin 10 mg , in addition to adherence to low- cholesterol diet and regular exercise, at least 30 minutes 3 to 4 times a week. Advised patient to make healthy food choices, eat more fruits, vegetables, whole grains, wild caught fish and low-fat dairy. Limit amount of meat and fried or fatty food products, as well as processed foods and fast foods. Follow-up scheduled with repeat fasting lipid panel in 6 months. (3) Osteopenia of multiple sites: Code(s): M85.89 - Other specified disorders of bone density and structure, multiple sites Plan: Improvement in bone density in her lumbar spine reported, continue with regular weight-bearing exercise, continue taking vitamin-D 3 supplements and adequate calcium from dietary sources repeat another bone density scan next year Orders: Orders Alanine Aminotransferase 04/06/24 E78.5 - Hyperlipidemia, unspecified Aspartate Amino Transferase 04/06/24 E78.5 - Hyperlipidemia, unspecified Lipid Panel 04/06/24 E78.5 - Hyperlipidemia, unspecified Quality Reporting (2019) Depression/Bipolar (159/160/161/177) PHQ-9: Total score: 2 Coding Level of Care Code Medicare Subsequent (G0439) Diagnoses Encounter for subsequent annual wellness visit (AWV) in Medicare patient Z00.00 Dyslipidemia E78.5 Osteopenia of multiple sites M85.89 CPT Codes Advance Care Planning - Advance Care Planning discussion: On file, no changes ([id number]) Advance Care Planning - Time spent: 1-15 minutes, on File ([id number]) Additional Codes ANTWON-7 Assessment Billing - ANTWON-7 Assessment Tool: ANTWON-7 Assessment 93089 ([id number]) Advance Care Planning Advance Care Planning discussion: On file, no changes Date of discussion: 10/13/23 Who was present: patient Forms completed: Health Care Proxy and MOLST Time spent: 1-15 minutes, on File Actual minutes spent: 15
== END 2023-10-13 09:19 | disposition home or self-care (01) ==
PROVIDERS: Visit Provider Internal Medicine
DX: Z00.00 Encounter for general adult medical examination without abnormal findings (principal); E78.5 Hyperlipidemia, unspecified; M85.89 Other specified disorders of bone density and structure, multiple sites
CPT/HCPCS: 1123F; G0439

== ENCOUNTER 2024-03-15 09:10 | Outpatient (REF) | payer MEDICARE, OTHER, SELFPAY ==
[2024-03-15 11:01] LABS: Alanine Aminotransferase 13 U/L (0-31); Aspartate Amino Transferase 26 U/L (5-31); Cholesterol 174 mg/dL (<200); HDL Cholesterol 67 mg/dL (>40); LDL Cholesterol Calculated 88 mg/dL (<100); Triglycerides 97 mg/dL (<150)
== END 2024-03-15 09:11 | disposition home or self-care (01) ==
LOC: HO.HMGCLDS 09:10
PROVIDERS: PCP Internal Medicine; Visit Provider Internal Medicine
DX: E78.5 Hyperlipidemia, unspecified (principal)
CPT/HCPCS: 36415; 80061; 84450; 84460

== ENCOUNTER 2024-03-26 09:49 | Outpatient (AMB) | payer MEDICARE, OTHER, SELFPAY ==
--- NOTE | 2024-03-26 09:45 | A.OFFPC_ITS ---
Intake Visit Reasons: f/u labs I phone [phone] Intake Note: Pt is having a TH visit to f/u labs Allergies bees Allergy (Unknown, Uncoded 03/26/24 10:56) swelling lipitor Adverse Reaction (Unknown, Uncoded 03/26/24 10:56) abnormal LFTs Medication List - Last Reconciled 03/26/24 by Juliana Esparza MD cholecalciferol (vitamin D3) 50 mcg PO DAILY epinephrine (EpiPen 2-Kevin) 0.3 mg (0.3 mL) IM Q15M PRN omega-3 fatty acids 1,250 mg PO DAILY rosuvastatin 10 mg PO DAILY Tobacco use date assessed: 03/26/24 Fall risk assessment: No Falls in past year Last assessed Fall Risk: 03/26/24 Dental Screening Dental Screen Date: 03/26/24 Did you have a dental visit in the last 12 months?: Yes Did you have a dental problem in the last 6 months where you did not have access to dental care?: Yes Was dental information given to patient?: Patient has dentist HPI f/u labs I phone [phone] HPI Details Telehealth visit made with 83-year-old lady with hyperlipidemia, here today for follow-up. She is currently on rosuvastatin 10 mg daily, recently came back from a vacation in [facility] for 3 weeks, where she has been doing a lot of walking, swimming and eating home cooked meals. Recent fasting labs done showed more improvement in her lipids. Has been feeling well but has been having difficulty raising her left arm above shoulder level. Denies any history of trauma. Has been present now for the last several weeks not much relief with Tylenol. Would like referral for physical therapy. [facility] Medical History Left arm pain Osteopenia 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 Surgical History History of kidney surgery Family History Father Prostate cancer Mother Essential hypertension Coronary artery disease Stroke Brother Pancreatic cancer Social History Housing: House Alcohol intake: never Patient Tobacco Use Status: Never used Tobacco e-Cigarette/Vaping Use: Never Used Advance Directives Date on File: 07/05/22 Current occupational status: retired Cognitive needs: No Hearing needs: No Vision needs: Yes Questionnaire Thrive Questionnaire Date Thrive assessed: 03/23/24 I am a: Patient What is your living situation today?: I have a steady place to live Within the past 12 months, did the food you bought not last and you didn't have the money to get more?: Never true Within the past 12 months, did you worry whether your food would run out before you got money to buy more?: Never true Do you have trouble paying for medicines?: No Do you have trouble getting transportation to medical appointments?: No Do you have trouble paying your heating and electricity bill?: No Do you have trouble taking care of your child, family member or friend?: No Do you have trouble with day-to-day activities such as bathing, preparing meals, shopping, managing finances, etc.?: No Please select the resources that you would like help with: None Currently or been in a relationship where the following occur: I choose not to answer THRIVE Score: 0 AUDIT C Alcohol Use Questionnaire (AUDIT-C) 1. How often do you have a drink containing alcohol?: Never Total Score: 0 ANTWON-7 AMB Questionnaire ANTWON-7 Date ANTWON - 7 assessed: 10/13/23 Source: Developed by Drs. Jeffrey Cleaning, Liyah Devi, Jesus Self and colleagues, with an educational jose from [employer]. Review of Systems Const Denies chills, Denies fever(s) and Denies weakness Eyes Denies change in vision ENT Reports no additional complaints Card Denies chest pain, Denies leg edema, Denies lightheadedness, Denies palpitations and Denies dyspnea Resp Denies cough and Denies dyspnea GI Denies hematochezia and Denies change in bowel habits Reports no additional complaints Musc Denies abnormal gait, Denies muscle weakness, Denies numbness and Denies tingling Neuro Denies abnormal gait, Denies numbness, Denies tingling and Denies weakness Endo Denies palpitations Haim/Lymph Reports no additional complaints Aller/Immun Reports no additional complaints Physical exam (Primary Care) Tobacco/Smoking Status: Tobacco use Status Tobacco use date assessed 03/26/24 03/26/24 09:47 Patient Tobacco Use Status Never used Tobacco 03/26/24 09:47 e-Cigarette/Vaping Use Never Used 03/26/24 09:47 Thrive Assessment: Date of Thrive Assessment Date Thrive assessed 03/23/24 03/26/24 09:47 Currently or been in a relationship where the following occur: I choose not to answer Telehealth Telehealth Telehealth Platform: [facility] Location of provider rendering services: practice address Location of patient: address on file Patient Identification confirmed using: Name, : Yes Telehealth method: video Patient verbally consented to treatment: Yes Patient verbally consented to billing insurance company: Yes Patient informed of any privacy concerns related to visit: Yes Minutes spent on Phone/Video with Pt.: 15 Results Reviewed Results Reviewed: Name: Vidhi Dunham Age/Sex: 83/F : 1940 Unit#: [id number] Attend Dr: Juliana Esparza MD Re03/15/24 Status: DEP REF Location: [facility] Disch: SPEC : [id number] JOSEE: 03/15/24 STATUS: COMP REQ : [id number] RECD: 03/15/24-[address]: Juliana Esparza MD COMP: 03/15/24-1100 ENTERED: 03/15/24-[address]: ORDERED: AST, ALT, Lipid Panel Test Result Flag Reference AST (GOT) 26 5-31 U/L ALT (GPT) 13 0-31 U/L Triglyceride 97 <150 mg/dL Desirable Triglyceride: less than 150 mg/dL Borderline High Triglyceride 150-199 mg/dL High Triglyceride: 200-499 mg/dL Very High Triglyceride: greater than or equal to 5OO mg/dL Cholesterol 174 <200 mg/dL Desirable Cholesterol: less than 200 mg/dL Borderline High Cholesterol: 200-239 mg/dL High Cholesterol: greater than 239 mg/dL LDL Calculated 88 <100 mg/dL Desirable LDL: less than 100 mg/dL Near Optimal/Above Optimal LDL: 110-129 mg/dL Borderline High LDL: 130-159 mg/dL High LDL: 160-189 mg/dL Very High LDL: greater than or equal to 190 mg/dL HDL 67 >40 mg/dL Desirable HDL: greater than 40 mg/dL Note: This HDL assay may give artificially low results in patients with liver disease. Assessment and Plan Assessment & Plan (1) Dyslipidemia: Code(s): E78.5 - Hyperlipidemia, unspecified Plan: Recent fasting labs showed better lipid control as compared to last check. Continue with adherence to healthy eating habits, continue with rosuvastatin 10 mg daily and Hodge 3 fatty acid supplements, and continue with regular exercise at least 30 minutes daily will repeat labs again in 10/2024 (2) Left arm pain: Code(s): M79.602 - Pain in left arm Plan: Referred for physical therapy Orders: Orders 2 PT Evaluation and Treatment Today M79.602 - Pain in left arm Alanine Aminotransferase 10/05/24 E78.5 - Hyperlipidemia, unspecified, M85.89 - Other specified disorders of bone density and structure, multiple sites, Z13.1 - Encounter for screening for diabetes mellitus AMB Hemoglobin A1c 10/05/24 E78.5 - Hyperlipidemia, unspecified, M85.89 - Other specified disorders of bone density and structure, multiple sites, Z13.1 - Encounter for screening for diabetes mellitus Lipid Panel 10/05/24 E78.5 - Hyperlipidemia, unspecified, M85.89 - Other specified disorders of bone density and structure, multiple sites, Z13.1 - Encounter for screening for diabetes mellitus Vitamin D 25-OH Total 10/05/24 E78.5 - Hyperlipidemia, unspecified, M85.89 - Other specified disorders of bone density and structure, multiple sites, Z13.1 - Encounter for screening for diabetes mellitus Glucose Fasting 10/05/24 E78.5 - Hyperlipidemia, unspecified, M85.89 - Other specified disorders of bone density and structure, multiple sites, Z13.1 - Encounter for screening for diabetes mellitus Coding Level of Care Code Est Pt Level 4 (44199) Complex EM visit Add On G2211 Diagnoses Dyslipidemia E78.5 Left arm pain M79.602
== END 2024-03-26 13:09 | disposition home or self-care (01) ==
LOC: HO.HMCC 09:49
PROVIDERS: PCP Internal Medicine; Visit Provider Internal Medicine
DX: E78.5 Hyperlipidemia, unspecified (principal); M79.602 Pain in left arm

== ENCOUNTER → 2024-03-26 09:49 | Outpatient (BNVA) | payer MEDICARE, OTHER, SELFPAY | PROVIDERS: PCP Internal Medicine; Visit Provider Internal Medicine | DX: M79.602 Pain in left arm (principal); E78.5 Hyperlipidemia, unspecified | CPT/HCPCS: 99212 ==

== ENCOUNTER 2024-06-14 09:00 | Outpatient (RCR) | payer MEDICARE, OTHER, SELFPAY ==
--- NOTE | 2024-04-22 11:46 | MHC.PT.EP ---
[facility] [place] [facility] [place] [facility] [place] [facility] [address] Mazin Padilla [address] [phone] F: [phone] F: [phone] F: [phone] F: [phone] Physical Therapy Plan of Care Date of Evaluation: 04/22/24 Date of Surgery: n/a Diagnosis: L upper arm pain Assessment: Patient is a 83 year old female presenting to PT with complaints of pain in her L upper arm. Pt reports onset of pain began a few months ago due to swimming and lifting a wheelchair. She presents today with impairments in pain, ROM, shoulder strength, posture. 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 Pt expresses mcc goal of reducing pain, and is motivated to work towards this in PT. Clinical presentation today is most consistent with signs and sx associated with L upper arm pain and pt will benefit from skilled PT 2 week x 4 weeks to address the following problems and impairments noted upon evaluation: pain, ROM, shoulder strength, posture. These problems limit the patient with the following functional activities: reaching, lifting, ADLs, full time. The prescribed treatment plan of care is medically necessary. Co-morbidities of osteopenia were identified and taken into considerations of plan of care. Pt was educated on HEP, role of PT, prognosis, POC. Frequency and Duration: The patient will be seen 2 x week x 4 weeks Short Term Goals: Pt will demonstrate improved L shoulder ROM by 20 degrees in 2 weeks. Pt will demonstrate L shoulder MMT strength at least 3+/5 in 2 weeks. Group Home Goals: Pt will demonstrate improved SPADI score by 13 points in 4 weeks for improved functional mobility. Pt will demonstrate ability to reach OH with min to no pain in 4 weeks for return to PLOF. Pt will demonstrate ability complete all full time with min to no pain in 4 weeks for return to PLOF. Treatment Plan: Modalities to reduce pain, spasms and effusion. Manual therapy to restore motion and function. Therapeutic exercise to improve strength and flexibility. Neuromuscular re-education for posture and balance. Therapeutic activities to return to functional activities of daily living. Electronically signed by: Yudith Bustamante, PT, DPT, ATC Please sign and return to therapist. Thank you for your referral.
--- NOTE | 2024-06-14 09:51 | MHC.PT.DC ---
[facility] [place] [facility] [place] [facility] [place] Office [address] Brise[address] Padilla [address] [phone] F: [phone] F: [phone] F: [phone] F: [phone] Physical Therapy Discharge Report Diagnosis: L upper arm pain Date of Surgery: n/a Date of Evaluation: 04/22/24 Date of Discharge: 06/14/24 Treatments to Date: 13 Cancellations to Date: 0 No Shows to Date: 0 Discharge Status: Achieved Goals Improved Function Independent with HEP Discharge Summary: 06/14/2024: Pt has made progress since start of care. Overall her pain is better although she is still having pain but with less severity. She feels PT has been helpful and she is ready to continue on her own. She is independent and compliant with her HEP. At this time max benefits of PT have been provided and skilled PT is no longer indicated. I advised her to follow up with her doctor if her pain continues to limit her function and she is in agreement with this. Electronically signed by: Yudith Bustamante, PT, DPT, ATC Please sign and return to therapist. Thank you for your referral.
== END 2024-06-14 09:51 | disposition home or self-care (01) ==
LOC: HO.PTCHIC 09:00
PROVIDERS: PCP Internal Medicine; Visit Provider Internal Medicine
DX: M79.602 Pain in left arm (principal)
CPT/HCPCS: 97110; 97140; 97161

== ENCOUNTER 2024-10-14 08:48 | Outpatient (REF) | payer MEDICARE, OTHER, SELFPAY ==
--- OUTSIDE RECORDS SUMMARY | 2024-10-14 09:14 | XMS_ITS | Clinical Summary ---
Author Organization 175 [facility] Address [address] [place] [address] Phone Care Team Providers Care Strip Tank Tender Name Role Phone Juliana Esparza MD Primary Care Provider [phone] Allergies Active Allergy Reactions Criticality Noted Date Comments Atorvastatin 07/31/2022 Other 07/31/2022 Medications alendronate (FOSAMAX) 70 mg tablet Take 1 tablet (70 mg total) by mouth every 7 (seven) days. Active cholecalciferol (VITAMIN D-3) 50 mcg (2,000 unit) tablet Take 1 tablet (2,000 Units total) by mouth. Active doxycycline hyclate (VIBRA-TABS) 100 mg tablet Take 1 tablet (100 mg total) by mouth 2 (two) times a day. Active EPINEPHrine (EpiPen 2-Kevin) 0.3 mg/0.3 mL injection Inject as directed See administration instructions. Active mupirocin (BACTROBAN) 2 % ointment Apply topically 3 (three) times a day. Active fish,bora,flax oils-om3,6,9no1 ([place] 3-6-9) 1,200 mg capsule Take 1,200 mg by mouth. Active rosuvastatin (CRESTOR) 10 mg tablet Take 1 tablet (10 mg total) by mouth 1 (one) time each day. Active silver sulfADIAZINE (SILVADENE, SSD) 1 % cream Apply topically 1 (one) time each day. To nail bed 08/13/19 23 Active ammonium lactate (AmLactin) 12 % lotion Apply topically if needed for dry skin. 400 g 06/09/20 24 025 Active Social History Tobacco Use Types Packs/Day Years Used Date Smoking Tobacco: Never Assessed Comments Unknown Sex and Gender Information Value Date Recorded Sex Assigned at Not on file Legal Sex Female 5:17 PM EST Gender Identity Not on file Sexual Orientation Not on file Last Filed Vital Signs Vital Sign Reading Time Taken Comments Blood Pressure - - Pulse - - Temperature - - Respiratory Rate - - Oxygen Saturation - - Inhaled Oxygen Concentration - - Weight 59 kg (130 lb) 09/08/2024 9:26 AM EST Height 160 cm (5' 2.99 ) 09/08/2024 9:26 AM EST Body Mass Index 23.03 09/08/2024 9:26 AM EST Plan of Treatment Upcoming Encounters Date Type Department Care Team ([facility] st Contact Info) Description 11/04/2024 10:00 AM EDT Office Visit Orthopedic Surgery - [place] [address] [address] Vaibhav Parekh, DPM [address] [address] Health Maintenance Due Date Last Done Comments RSV Immunization Adult Patients (1 - 1-dose 75+ series) 2016 Pneumococcal Vaccine: 50+ Years (2 of 2 - PPSV23) 05/18/2017 05/18/2016 Cholesterol Screening (Lipid Panel) 06/08/2022 Depression Screening 06/08/2022 Falls Risk Assessment 06/08/2022 Medicare Annual Wellness Visit 06/08/2022 Osteoporosis Screening (Bone Density Screening) 06/08/2022 Social Influencers of Health Screening 06/08/2022 Zoster Vaccines (2 of 2) 09/26/2022 08/01/2022 DTaP,Tdap,and Td Vaccines (2 - Td or Tdap) 12/20/2030 12/20/2020 COVID-19 Vaccine Completed 04/16/2024, , 03/10/2022, Additional history exists Influenza Vaccine Completed 04/16/2024, , 03/10/2022, Additional history exists HIB Vaccines Aged Out No longer eligi ble based on patient's age to complete this topic HPV Vaccines Aged Out No longer eligi ble based on patient's age to complete this topic Hepatitis A Vaccines Aged Out No long er eligible based on patient's age to complete this topic Hepatitis B Vaccines Aged Out No long er eligible based on patient's age to complete this topic IPV Vaccines Aged Out No longer eligi ble based on patient's age to complete this topic MMR Vaccines Aged Out No longer eligi ble based on patient's age to complete this topic Meningococcal ACWY Vaccine Aged Out N o longer eligible based on patient's age to complete this topic Meningococcal B Vaccine Aged Out No l onger eligible based on patient's age to complete this topic RSV Immunization Patients Under 20 months Aged Out No longer eligible based on patient's age to complete this topic Varicella Vaccines Aged Out No longer eligible based on patient's age to complete this topic Insurance MEDICARE [facility] Care Teams Strip Tank Tender Relationship Specialty Start Date End Date Juliana Esparza MD [address] [facility] [place] [address] PCP - General 07/31/22
--- OUTSIDE RECORDS SUMMARY | 2024-10-14 09:14 | XMS_ITS | Data Portability ---
Author Organization [facility] [address] Address [address] [place] [address] Care Team Providers Care Manager Instrumentation Name Role Phone KIA RIVERA Primary Care Provider [phone] Assessment No assessment recorded. Plan of Treatment Reminders Order Date Submit Date Provider Last Modified By Organization Details Last Modified Time Details Appointments None recorded. Lab None recorded. Referral None recorded. Procedures None recorded. Surgeries None recorded. Imaging None recorded. Medication Orders cephalexin 500 mg capsule 2022 023 [facility] #[id number], [address] [place], [address], 16:27:30 Patient TargetsNo targets recorded. Patient Instructions Encounter Date Encounter Id Patient Instructions Last Modified By Organization Details Last Modified Time 08/03/2022 [id number] cellulitis: care instructions [email or web address] Not available 08/03/2022 16:27:28 Reason for Referral None Reported. Problems Name Problem SNOMED Code Status Onset Date Resolution Date Notes Provider Name and Address Organization Details Recorded Time Hypercholestero lemia 15581294 Active 2022 BRAXTON salazar PA Natalie [facility] 16:07:19 Problem Notes None recorded. Procedures Surgical History Date Name Laterality Status Provider Name and Address Organization Details Recorded Time ureterorenoscopy with fragmentation and removal of calculus of kidney completed BRAXTON REYNA - [facility] 08/03/2022 16:08:33 Imaging Results None recorded. Procedure Notes None recorded. Medical Equipment None Reported. Allergies Allergen ID Allergen Name Allergen Category Reaction Reaction Severity Criticality Documentation Date Start Date Code Code System Note Provider Name and Address Organization Details Recorded Time 335635 honey bee venom medicatio n anaphylax is Not available Not available 08/03/2022 67176 7 RxNorm [facility] 3 16:06:32 Medications Name Sig Start Date Stop Date Status Note LastModified by Organization Details LastModified Time amoxicillin 500 mg capsule TAKE 1 CAPSULE BY MOUTH EVERY 8 HOURS UNTIL FINISHED 08/03 completed Not Available Not Available Not Available silver sulfadiazin e 1 % topical cream active Not Available Not Available Not Available ibuprofen 800 mg tablet TAKE 1 TABLET BY MOUTH EVERY 8 HOURS NEEDED FOR PAIN 08/03 completed Not Available Not Available Not Available alendronate 70 mg tablet 08/03 completed Not Available Not Available Not Available cephalexin 500 mg capsule 1 cap po bid x 7 d 2022 active Not Available Not Available Not Avai lable epinephrine 0.3 mg/0.3 mL injection, auto-inject or 0.3 MG (0.3 ML) INTRAMUSC ULARLY EVERY 15 MINUTES NEEDED FOR ANAPHYLAX IS FOR 3 DOSES active Not Available Not Available No t Available rosuvastati n 10 mg tablet active Not Available Not Available Not Available COVID-19 At-Home Test kit USE DIRECTED ON BOX. active Not Available Not Available No t Available Vitals Date Recorded Body height Body mass index (BMI) Body weight Pain severity - 0-10 verbal numeric rating [Score] - Reported Body temperature Respiratory rate Oxygen saturation Oxygen saturation in Arterial blood by Pulse oximetry Heart rate Systolic blood pressure Diastolic blood pressure Provider Name and Address Organization Details Last Updated DateTime 3 160.02 cm 23 kg/m2 12032.0 1 g 9 97.4 [degF] 18 /min 98 % 98 % 91 /min 133 mm[Hg] 81 mm[Hg] BRAXTON Estrada [facility] 3 16:09:49 Social History Question Answer Notes LastModified by Organizat ion Details LastModified Time Tobacco Smoking Status Never Smoker [facility] Powell [facility] 08/03/2022 16:07:34 What Is Your Level Of Alcohol Consumption? None Information not available 08/03/2022 Have You Had Direct Contact, Or Contact During Intimacy, With Monkeypox Rash, Scabs, Or Body Fluids From A Person With Monkeypox? No Information not available 08/03/2022 Do You Use Any Illicit Or Recreational Drugs? No Information not available 08/03/2022 Have You Recently Traveled Abroad? No Information not available 08/03/2022 Do You Or Have You Ever Used Any Other Forms Of Tobacco Or Nicotine? No Information not available 08/03/2022 Sex: Unknown Functional Status None recorded. Mental Status None recorded. Family History Relationship Description Onset Age of this Age Resolved Age Notes LastModified by Organization Details LastModified Time Father No current problems or disability Not available 08/03 16:07:24 Mother No current problems or disability Not available 08/03 16:07:24 Medical History No medical history recorded. Gynecological HistoryNo gynecological history recorded. Obstetrics History GPAL:G 0 P 0 0 0 0 Past Encounters Encounter ID Performer Location Encounter Start Date Encounter Closed Date Diagnosis/Indication Diagnosis SNOMED-CT Code Diagnosis ICD10 Code Diagnosis Note [id number] [id number] [address] 10/10/2016 10:07:08 10/10/2016 11:07:55 [id number] Ozzie Garcia DO [address] [address] 08/03/2022 15:56:04 08/03/2022 16:35:45 Cellulitis 164572105 L03.90 PE consistent with Cellulitis will Rx antibiotic sTake your antibiotic with food. Eat a yogurt daily or take a probiotic while you are taking the antibiotic .You may use over the counter tylenol or ibuprofen as needed for pain or feverKeep are clean and dryPlease follow up with your PCP in 1 week to recheckPat ient advised to follow up as needed for worsening symptoms or no improvemen t. Health Concerns Section Related Observation LastModified by Organization Detai ls LastModified Time None Recorded Concern Status LastModified by Organization Details LastModified Time None Recorded Advance Directives Directive None Recorded Payers Encounter Date Sequence Insurance Name Policy Number Policy Rosado Covered Member ID Rosado Member ID Guarantor Name 10/10/2016 1 [place] Vidhi K Fotopoulos [id number] Vidhi Fotopoulos 10/10/2016 2 WPS - FOR LIFE (MEDICARE SUPPLEMENT) Vidhi Fotopoulos [id number] Vidhi Fotopoulos 08/03/2022 1 [place] Vidhi K Fotopoulos [id number] Vidhi Fotopoulos 08/03/2022 2 WPS - FOR LIFE (MEDICARE SUPPLEMENT) Vidhi Fotopoulos [id number] Vidhi Fotopoulos Notes Date Note Type Note Provider Name and Address Organization Details Recorded Time 08/03/2022 text/html Skin Redness UCReported bypatient.Notes:[age] yo female c/o right great toe redness, pain x 1.5 wks.Was seen by branch billing payroll clerk 3 days ago who cleaned and cut part of nail, but did not give antibiotic no f/c/n/v+ d/c+ rednessno rash+ pain - getting worseno traumano OTC meds Ozzie Garcia, DO [address] [place], [address], [place] - [facility] 08/03/2022 16:36:12 OBGyn Episode No OBEpisode recorded.
[2024-10-14 10:34] LABS: Alanine Aminotransferase 19 U/L (0-31); Cholesterol 193 mg/dL (<200); Glucose Fasting 94 mg/dL (60-99); HDL Cholesterol 70 mg/dL (>40); LDL Cholesterol Calculated 106 mg/dL (<100); Triglycerides 87 mg/dL (<150)
[2024-10-14 10:49] LABS: Vitamin D 25-OH Total 64.2 ng/mL (>30)
== END 2024-10-14 08:49 | disposition home or self-care (01) ==
LOC: HO.HMGCLDS 08:48
PROVIDERS: PCP Internal Medicine; Visit Provider Internal Medicine
DX: E78.5 Hyperlipidemia, unspecified (principal); M85.89 Other specified disorders of bone density and structure, multiple sites; Z13.1 Encounter for screening for diabetes mellitus
CPT/HCPCS: 36415; 80061; 82306; 82947; 84460

== ENCOUNTER 2024-10-26 08:38 | Outpatient (AMB) | payer MEDICARE, OTHER, SELFPAY ==
--- OUTSIDE RECORDS SUMMARY | 2024-10-26 08:59 | XMS_ITS | Continuity of Care Document ---
Author Name [facility] Organization [facility] Care Team Providers Care Political Anthropologist Name Role Phone [facility] Unavailable Unavailable Medications Combined list of outpatient medications from Department of Defense and Veterans Affairs facilities.Medications provided include 1) outpatient medications from the last 15 months, and 2) patient-reported medications. Medication Details Route Status Patient Instructions Prescription Expires Prescription Number Last Dispense Date Ordering Provider Order Date Order Qty Source ROSUVASTATI N CALCIUM (rosuvastat in calcium), 10 MG, TABLET, ORAL, eVigilo., 1000 ea. BOTTLE Active [id number] 2023 90 Pharmac y Data Transac tion Service Facilit y Immunizations Combined list of available immunizations from the Department of Defense and Veterans Affairs facilities. Immunization Series Date Given Administered By Site Reaction Lot Number CVX Code Drug Textile Screen Maker Status Comments Source COVID-19, mRNA, LNP-S, PF, 30 mcg/0.3 mL dose, trevin-sucrose 2021 BOGDASARIAN, () Not Given COVID-19, mRNA, LNP-S, PF, 30 mcg/0.3 mL dose, trevin-sucr ose DoD COVID-19, mRNA, LNP-S, PF, 30 mcg/0.3 mL dose, trevin-sucrose 2021 [place] (PFR) Not Given COVID-19, mRNA, LNP-S, PF, 30 mcg/0.3 mL dose, trevin-sucr ose [facility] influenza, high-dose, quadrivalent 2019 BOGDASARIAN, () Not Given influenza , high-dose , quadrival ent DoD Influenza, high dose seasonal 2015 ZULEMA, () Not Given Influenza , high dose seasonal DoD Social History Combined list of available smoking, tobacco, and other social history from Department of Defense and Veterans Affairs facilities. Social History Type Response Date Comment Sour e This section is an empty social history section. DoD
--- OUTSIDE RECORDS SUMMARY | 2024-10-26 08:59 | XMS_ITS | Clinical Summary ---
Author Organization 175 [facility] Address [address] [place] [address] Phone Care Team Providers Care Maintenance Equipment Operator Name Role Phone Juliana Esparza MD Primary Care Provider Allergies Active Allergy Reactions Criticality Noted Date [...] (three) times a day. Active fish,bora,flax oils-om3,6,9no1 ([place] 3-6-9) 1,200 mg capsule Take 1,200 mg [...] Upcoming Encounters Date Type Department Care Team ([facility] st Contact Info) Description 11/04/2024 10:00 AM EDT Office Visit Orthopedic Surgery - [place] [address] [address] Vaibhav Parekh, DPM [address] [address] Health Maintenance Due Date Last Done Comments [...] Zoster Vaccines (2 of 2) 09/26/2022 08/01/2022 COVID-19 Vaccine ( season) 2024 04/16/2024, 04/21/2023, 03/10/2022, Additional history exists DTaP,Tdap,and Td Vaccines (2 - Td or Tdap) 12/20/2030 12/20/2020 Influenza Vaccine Completed 04/16/2024, , 03/10/2022, Additional [...] age to complete this topic Insurance MEDICARE [facility] Care Teams Maintenance Equipment Operator Relationship Specialty Start Date End Date Juliana Esparza MD [address] [facility] [place] [address] PCP - General 07/31/22
--- NOTE | 2024-10-26 09:57 | AM.OFFVISMDC ---
Intake Vital Signs 10/26/24 09:59 Height 5 ft 3 in Weight 140 lb BMI 24.8 BP 104/70 Blood Pressure Location Lt brachial Position Sitting Respiration 15 Pulse 82 Pulse Source Pulse Oximeter Temp 97.8 F Temp Source Oral Pulse Oximetry (%) 97 Oxygen Delivery Method Room Air Intake Visit Reasons: SWV G0439 Intake Note: Pt is here today for her SWV: last mammogram 04/26/19, bone density scan 08/13/23, colonoscopy 11/10/20 Allergies bees Allergy (Unknown, Uncoded 10/26/24 10:35) swelling lipitor Adverse Reaction (Unknown, Uncoded 10/26/24 10:35) abnormal LFTs Medication List - Last Reconciled 10/26/24 by Juliana Esparza MD cholecalciferol (vitamin D3) 50 mcg PO DAILY epinephrine (EpiPen 2-Kevin) 0.3 mg (0.3 mL) IM Q15M PRN omega-3 fatty acids 1,250 mg PO DAILY rosuvastatin 10 mg PO DAILY HPI SWV G0439 HPI Details SWV ? 83 year old lady with history of hyperlipidemia, osteopenia, presents for her subsequent Annual Wellness Visit. She had recent fasting lipid panel and fasting blood sugar done 10/14/2024 both of which showed normal findings. Her last mammogram was in 2021 which showed normal finding, patient requesting to have another mammogram screening for this year. No longer gets cervical cancer screenings, her last screening colonoscopy was done by Dr. Rae 11/10/2020 with removal of a tubular adenoma polyp, and is scheduled for a repeat colonoscopy again in 2025. She had a bone density scan done 08/15/2023 which showed improvement , no longer having osteoporosis in lumbar spine, now osteopenia in lumbar spine, femoral neck and left femur. No history of fracture She is up-to-date with her COVID vaccination including booster, gets yearly flu shots, Prevnar 20 given today , up-to-date with her Tdap, received only 1 dose of her Shingrix vaccine , reminded to get the 2nd dose. ? Medical / Social History Reviewed? Past Medical History ?Yes . ? [place] of Care / Care Team list updated ?Yes . ? Surgical/Hospitalization History ?Yes . ? Current Medications (including OTC and supplements) ?Yes . ? Family History ?Yes . ? Tobacco Control form ?Yes . ? AUDIT-C (Alcohol use) form ?Yes . ? Illicit drug use in Social History ?Yes . ? Current diagnosis of depression? ?No ? Appropriate PHQ2/PHQ9 completed ?Yes . ? Data entered by ?[employer] Laboratory Director and reviewed by provider ? Fall Risk ? Fall History? Have you had any falls with injury in the past year? ?No . ? Have you had two or more falls in the past year? ?No . ? Fall Risk Assessment: ?No falls in the past year . ? HRA filled out by the patient, reviewed by Provider and scanned. ?? SWV ? Balance? Romberg ?Yes . ? Tandem walk ?Yes . ? Walk and Turn ?Yes . ? Rise from sit to stand ?Yes . ?Vision? Corrective lens ?none ? Vision screen ? Up-to-date, goes to [facility] [place] ?Hearing? Whisper test ?pass . ?Written Plan?Completed. See Patient Documents.? [facility] Medical History Left arm pain Osteopenia 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 Surgical History History of kidney surgery Family History Father Prostate cancer Mother Essential hypertension Coronary artery disease Stroke Brother Pancreatic cancer Social History Housing: House Alcohol intake: never Patient Tobacco Use Status: Never used Tobacco e-Cigarette/Vaping Use: Never Used Advance Directives Date on File: 07/05/22 Current occupational status: retired Cognitive needs: No Hearing needs: No Vision needs: Yes Questionnaire Medicare Wellness Checkup What is your age?: 80 or older What gender do you identify with?: female During the past 4 weeks, how much have you been bothered by emotional problems such as feeling anxious, depressed, irritable, sad or downhearted, and blue?: not at all During the past 4 weeks, has your physical & emotional health limited your social activities with family, friends, neighbors, or groups?: not at all During the past 4 weeks, how much bodily pain have you generally had?: no pain During the past 4 weeks, was someone available to help you if you needed & wanted help?: no, not at all During the past 4 weeks, what was the hardest physical activity you could do for at least 2 minutes?: moderate Can you get to places out of walking distance without help? (For eg., can you travel alone on buses, taxis or drive your car?): Yes Can you go shopping for groceries or clothes without someone's help?: Yes Can you prepare your own meals?: Yes Can you do your housework without help?: Yes Because of any health problems, do you need the help of another person with your personal care needs such as eating, bathing, dressing or getting around the house?: No Can you handle your own money without help?: Yes During the past 4 weeks, how would you rate your health in general?: good During the past 4 weeks how have things been going for you?: pretty well Are you having difficulties driving your car?: no Do you always fasten your seat belt when you are in a car?: yes, usually During past 4 weeks, have you been bothered by the following: never: Falling or dizzy when standing up, Sexual problems?, Trouble eating well? and Problems using the telephone?, seldom: Tiredness or fatigue? and sometimes: Teeth or denture problems? Have you fallen 2 or more times in the past year?: No Are you afraid of falling?: No Are you a smoker?: no During the past 4 weeks, how many drinks of wine, beer, or other alcoholic beverages did you have?: 1 drink or less per week Do you exercise for about 20 minutes 3 or more times a week?: yes, some of the time Have you been given information to help with the following?: yes: Keeping track of your medications? and no: Hazards in your house that might hurt you? How often do you have trouble taking medicines the way you have been told to take them?: I always take medicine as prescribed How confident are you that you can control & manage most of your health problems?: somewhat confident What is your race?: White Mini Mental State Exam (MMSE) Orientation What is the (year) (season) (date) (day) (month)?: year (2024), season (spring), date (10/26/2024), day (friday) and month (October) Where are we (state) (county) (town or city) (hospital) (floor)?: state ([place]), county ([place]), town or city ([place]) and hospital/clinic ([facility]) Score Score: 9 Activity of Daily Living Bathing - sponge bath, tub bath or shower: receives no assistance (gets in/out by self, if usual bathing means Dressing - getting clothes from closets & drawers, including inner/outer garments & fasteners.: gets clothes & gets completely dressed without help Toileting - going to the 'toilet room' for urine/bowel elimination & cleaning self/arranging clothes: goes to toilet room, cleans self, arranges clothes without help Transfer: moves in & out of bed and chair without help (may use support object) Continence: controls urination/bowel movements completely by self Feeding: feeds self without help Total Score: 0 Information obtained from: patient Using telephone: independent Traveling: independent Shopping: independent Preparing meals: independent Housework: independent Taking medicine: independent Managing money: independent PHQ-9 Over the last 2 weeks, how often have you been bothered by any of the following problems? 1. Little interest or pleasure in doing things: not at all 2. Feeling down, depressed, or hopeless: not at all 3. Trouble falling or staying asleep, or sleeping too much: several days 4. Feeling tired or having little energy: not at all 5. Poor appetite or overeating: not at all 6. Feeling bad about yourself - or that you are a failure or have let yourself or your family down: not at all 7. Trouble concentrating on things, such as reading the newspaper or watching television: not at all 8. Moving or speaking so slowly that other people could have noticed. Or the opposite - being so fidgety or restless that you have been moving around a lot more than usual: not at all 9. Thoughts that you would be better off or of hurting yourself in some way: not at all Total score: 1 Depression Screening Interpretation: Negative Depression Screening Done: Yes 99810 - PHQ-9 Billing: Yes Source: Developed by Drs. Jeffrey Cleaning, Liyah Devi, Jesus Self and colleagues, with an educational jose from [employer]. Physical Exam Vital Signs: Last Vital Signs Temp 97.8 F 10/26/24 09:59 Pulse 82 10/26/24 09:59 Resp 15 10/26/24 09:59 BP 104/70 10/26/24 09:59 Pulse Ox 97 10/26/24 09:59 Oxygen Delivery Method Room Air 10/26/24 09:59 BMI result Body Mass Index 24.8 Immunizations pneumoc 20-fabrizio conj-dip cr(PF) 0.5 mL IM syringe Performing Provider: Juliana Esparza MD Performing Location: [facility] Administered by: Janice Dougherty CMA on 10/26/24 10:36 Dose Route Admin Location Dispensed Lot Number Expiration Date [facility] Text[employer] 0.5 mL IM Right Deltoid 0.5 mL [id number] 09/03/25 0269-1691-00 WYETH/PFIZER VIS Given Date VIS Provided VIS Publication Date 10/26/24 Single Vaccine 21 Eligibility Eligibility Date Funding Source Not [facility] Eligible 10/26/24 Private Results Reviewed Results Reviewed: Name: Vidhi Dunham Age/Sex: 83/F : 1940 Unit#: [id number] Attend Dr: Juliana Esparza MD Re10/14/24 Status: DEP [facility]F [facility] Disch: SPEC : [id number] JOSEE: 10/14/24 STATUS: COMP REQ : [id number] RECD: 10/14/24-[address]: Juliana Esparza MD COMP: 10/14/24-1049 ENTERED: 10/14/24-[address]: ORDERED: Glu Fasting, ALT, Lipid Panel, Vitamin D 25-OH Test Result Flag Reference FBS 94 60-99 mg/dL ALT (GPT) 19 0-31 U/L Triglyceride 87 <150 mg/dL Desirable Triglyceride: less than 150 mg/dL Borderline High Triglyceride 150-199 mg/dL High Triglyceride: 200-499 mg/dL Very High Triglyceride: greater than or equal to 5OO mg/dL Cholesterol 193 <200 mg/dL Desirable Cholesterol: less than 200 mg/dL Borderline High Cholesterol: 200-239 mg/dL High Cholesterol: greater than 239 mg/dL LDL Calculated 106 H <100 mg/dL Desirable LDL: less than 100 mg/dL Near Optimal/Above Optimal LDL: 110-129 mg/dL Borderline High LDL: 130-159 mg/dL High LDL: 160-189 mg/dL Very High LDL: greater than or equal to 190 mg/dL HDL 70 >40 mg/dL Desirable HDL: greater than 40 mg/dL Note: This HDL assay may give artificially low results in patients with liver disease. Vitamin D 25-OH 64.2 >30 ng/mL Health Based Reference Values* < 20 ng/mL Deficient 20-30 ng/mL Insufficient > 30 ng/mL Sufficient Assessment & Plan Assessment & Plan (1) Encounter for subsequent annual wellness visit (AWV) in Medicare patient: Code(s): Z00.00 - Encounter for general adult medical examination without abnormal findings Plan: Medical wellness checklist reviewed, discussed with patient and updated. She is due for her repeat screening colonoscopy again with Dr. Rae in 2025, [facility] Pap and pelvic exam, overdue for her screening mammogram, ordered. Last bone density scan showed osteopenia in multiple sites in 2023 due again for recheck in 2025. Up-to-date with all her vaccinations but only received 1 dose of shingles vaccine 2022, reminded to dose your pharmacist to see if she needs to redo the whole vaccination series again or get the 2nd dose instead. Prevnar 20 given today. (2) Osteopenia of multiple sites: Code(s): M85.89 - Other specified disorders of bone density and structure, multiple sites Plan: Continue with vitamin-D 3 supplements, take adequate calcium from dietary sources, reinforced importance of doing regular weight-bearing exercise. Repeat another bone density scan in 2025 (3) Dyslipidemia: Code(s): E78.5 - Hyperlipidemia, unspecified Plan: Reviewed recent fasting lipid profile with patient with levels within normal limits except for slightly higher LDL cholesterol as compared to last check. Continue rosuvastatin 10 mg daily and [place] 3 fatty acid supplements , in addition to adherence to low-cholesterol diet and regular exercise, at least 30 minutes 3 to 4 times a week. Advised patient to make healthy food choices, eat more fruits, vegetables, whole grains, wild caught fish and low-fat dairy. Limit amount of meat and fried or fatty food products, as well as processed foods and fast foods. Follow-up scheduled with repeat fasting lipid panel in 6 months. Orders: Orders MM tomosynthesis screening BI Today Z12.31 - Encounter for screening mammogram for malignant neoplasm of breast Pneumococcal 20 Immunization Today Z23 - Encounter for immunization Alanine Aminotransferase 04/06/25 E78.5 - Hyperlipidemia, unspecified Lipid Panel 04/06/25 E78.5 - Hyperlipidemia, unspecified Aspartate Amino Transferase 04/06/25 E78.5 - Hyperlipidemia, unspecified Medications: New pneumoc 20-fabrizio conj-dip cr(PF) 0.5 mL IM ONCE 0.5 mL 0RF Z23 - Encounter for immunization Quality Reporting (2019) Depression/Bipolar (159/160/161/177) PHQ-9: Total score: 1 Coding Level of Care Code Medicare Subsequent (G0439) Diagnoses Encounter for subsequent annual wellness visit (AWV) in Medicare patient Z00.00 Osteopenia of multiple sites M85.89 Dyslipidemia E78.5 Additional Codes PHQ-9 - 18153 - PHQ-9 Billing: Yes ([id number])
[2024-10-26 09:59] VITALS: BP 104/70; PULSE 82; RESP 15; TEMP 36.6; O2SAT 97; BMI 24.8
== END 2024-10-26 10:41 | disposition home or self-care (01) ==
LOC: HO.HMCC 08:38
PROVIDERS: PCP Internal Medicine; Visit Provider Internal Medicine
DX: Z00.00 Encounter for general adult medical examination without abnormal findings (principal); M85.89 Other specified disorders of bone density and structure, multiple sites; E78.5 Hyperlipidemia, unspecified; Z23 Encounter for immunization

== ENCOUNTER → 2024-10-26 08:38 | Outpatient (BNVA) | payer MEDICARE, OTHER, SELFPAY | PROVIDERS: PCP Internal Medicine; Visit Provider Internal Medicine | DX: Z00.00 Encounter for general adult medical examination without abnormal findings (principal); Z23 Encounter for immunization; E78.5 Hyperlipidemia, unspecified; M85.89 Other specified disorders of bone density and structure, multiple sites | CPT/HCPCS: 90471; 90677; 96127 ==

== ENCOUNTER 2025-03-05 06:45 | Emergency (ER) | payer MEDICARE, OTHER, SELFPAY ==
--- NOTE | ~2025-03-05 | CT_ITS ---
CLINICAL HISTORY: ? abscess vs reactive lymph node --- Additional Notes or Special Instructions: went to get 0803 pt didnt have iv. tech letting nurse know CT soft tissue neck with contrast Comparison: None provided Findings: The visualized intracranial contents are unremarkable. There is soft tissue opacification of the nasal passage, axial 10 -53/482. Enhancement versus calcification of the right on axial 40. No prevertebral fluid. Epiglottis is within normal limits. Pharyngeal mucosal space and parapharyngeal fat are normal. Salivary glands are within normal limits. No sialoliths. No suspicious thyroid nodules. No abscess. Dental artifact limits interpretation. Multiple dental caries are noted, for example left maxilla axial 97 -103. Borderline submental lymph node, axial 193. Soft tissue thickening in the submental region and anterior midline neck. No consolidation at the lung apices. Calcified granulomas are identified. No acute fracture or dislocation. Degenerative changes throughout the spine. Impression: No evidence of abscess. Borderline submental lymph node. Abnormal soft tissue density /opacification within the nasal passage extending into the ethmoid air cells. Skin thickening and subcutaneous edema along the submental region. This document has been electronically signed by: Beltran Correia MD on 03/05/2025 09:07:29
[2025-03-05 06:49] VITALS: BP 148/76; PULSE 86; RESP 15; TEMP 36.6; O2SAT 98; BMI 27.1
[2025-03-05 06:56] VITALS: BP 148/76; PULSE 86; RESP 16; TEMP 36.6; O2SAT 97
--- NOTE | 2025-03-05 07:00 | PC.NURSE ---
Patient presents to Ed c/o swollen area under chin Area painful rated 10/10 non radiating Denies fever, chills, SOB, trouble swallowing. Patient speaking in clear sentences Patient states I had a pimple on my chin a couple days ago but now the area is swelling Area tender to touch, warm, no redness noted Patient reports recent foreign travel VSS and up to date Provider in to see patient Plan of care on going
--- NOTE | 2025-03-05 07:15 | ED.SKABFB ---
HPI - Skin/Abscess/Foreign Bdy General Chief complaint: Skin/Abscess/Foreign Body Stated complaint: swelling under jaw Time Seen by Provider: 03/05/25 07:10 Source: patient Mode of arrival: ambulatory Limitations: no limitations History of Present Illness ED Provider: HPI narrative: 84-year-old woman, nondiabetic presenting with swelling in the submental area after squeezing out a pimple, no dental pain no dysphonia no fevers or chills. Related Data Home Medications ?Medication ?Instructions ?Recorded ?Confirmed cholecalciferol (vitamin D3) 50 50 mcg PO DAILY 10/12/20 09/18/22 mcg (2,000 unit) capsule omega-3 fatty acids 1,250 mg 1,250 mg PO DAILY 10/12/20 09/18/22 capsule Previous Rx's ?Medication ?Instructions ?Recorded rosuvastatin 10 mg tablet 10 mg PO DAILY #90 tabs 10/29/24 epinephrine 0.3 mg/0.3 mL 0.3 mg (0.3 mL) IM Q15M PRN 12/10/24 injection, auto-injector (EpiPen anaphylaxis #2 ea 2-Kevin) clindamycin HCl 300 mg capsule 300 mg PO TID 5 days #15 caps 03/05/25 (Cleocin HCl) Allergies Allergy/AdvReac Type Severity Reaction Status Date / Time bees Allergy Unknown swelling Uncoded 03/05/25 06:51 lipitor AdvReac Unknown abnormal Uncoded 03/05/25 06:51 LFTs Review of Systems Constitutional: Constitutional: Reports as per HPI [facility] Past Medical History Medical History Left arm pain Osteopenia 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 Surgical History History of kidney surgery Family History Family History Father Prostate cancer Mother Essential hypertension Coronary artery disease Stroke Brother Pancreatic cancer Social History Social History Housing: House Alcohol intake: never Patient Tobacco Use Status: Never used Tobacco Smoked in Last 30 Days: No e-Cigarette/Vaping Use: Never Used Use of substances other than those prescribed or required for medical reasons: No Advance Directives: Yes Advance Directives on File: Yes Advance Directives Date on File: 07/05/22 Do you have a plan to hurt others: No Plan Current occupational status: retired Cognitive needs: No Hearing needs: No Vision needs: Yes Physical Exam Vital Signs: Vital Signs: Last Vital Signs Temp 97.8 F 03/05/25 09:09 Pulse 86 03/05/25 09:09 Resp 16 03/05/25 09:09 BP 148/76 H 03/05/25 09:09 Pulse Ox 97 03/05/25 09:09 O2 Del Method Room Air 03/05/25 09:09 BMI result Body Mass Index 27.1 Const: Other: Gen: ?Overall well-appearing patient HEENT: Floor of the mouth us is soft, uvula is midline, good dentition Neck: Nondraining submental lymph node versus collection, thyroid is intact Resp: ?No wheezing rales rhonchi no stridor moving air well MSK: FROM, strength 5/5 all extremities Skin: No drainage, there was a small mihir to the left side of the chin from prior pustule Neuro: ?Alert and oriented x3, moving upper and lower extremities symmetrically, no obvious facial asymmetry noted Medications Administered Discontinued Medications Generic Name Dose Route Start Last Admin Trade Name Daniela PRN Reason Stop Dose Admin Iohexol 100 ml 03/05/25 08:51 03/05/25 08:51 Iohexol 350 Mg/Ml 100 Ml Infus..Btl IV 03/05/25 08:52 60 ml ONCE ONE Administration Medical Decision Making Medical Decision Making [facility] Narrative: Patient has a fairly enlarged either lymph node or fluctuation of the submental area we will obtain CT for potential abscess evaluation, disposition to be determined, started after she squeezed out a small pimple. Differential Diagnosis Differential Diagnoses: The differential diagnosis associated with the presentation includes (Reactive lymph node, David's angina, neck abscess, cellulitis, thyroid mass) Admission/Observation Consideration of admission/observation: Escalation of care including admission/observation considered (CT without deep space infection, no leukocytosis nonfebrile we will discharge home with antibiotics) 2022 Emergency Medicine Coding Guide from [employer] on 03/05/2025 All calculations should be rechecked by clinician prior to use RESULT SUMMARY: 5 Estimated Level of Service Problems: High (5) Risk: High (5) Data: Moderate (4) NARRATIVE MDM: This patient's problem complexity is High as patient: may have an acute or chronic illness/injury posing a threat to life or body function. This patient's risk is High due to: overall presentation requiring evaluation for a potentially High-risk process. This patient's data complexity is Moderate due to: -multiple tests ordered INPUTS: Number and Complexity ?> 2 = 5: illness/injury w/life or body threat (b) Risk level ?> 4 = High Tests ordered ?> 2 = 2 Tests results reviewed (excluding labs) ?> 1 = 1 Prior external notes reviewed ?> 0 = 0 Assessment requiring and independent historian ?> 0 = No Independent interpretation of tests ?> 0 = No Discussed management/test interpretation w/external professional ?> 0 = No Lab Data MDM Lab Attestation statement: I reviewed the patient's lab results. 03/05/25 07:26 03/05/25 07:26 Labs: Lab Results 03/05/25 Range/Units 07:26 WBC 5.3 (4.8-10.8) X10*3/uL RBC 4.25 (4.20-5.50) X10*6/uL Hgb 13.8 (12.0-16.0) g/dl Hct 40.9 (37.0-47.0) % MCV 96.2 (80.0-98.0) fL MCH 32.5 (27.0-33.0) pg MCHC 33.7 (31.0-35.0) g/dl RDW 13.6 (11.0-16.0) % Plt Count 208 (160-400) X10*3/uL MPV 9.9 (9.4-12.3) fL Immature Gran % (Auto) 0.4 (0.0-0.4) % Neut % (Auto) 72.9 (45-73) % Lymph % (Auto) 16.2 L (20-40) % Meade % (Auto) 7.9 (2-11) % Eos % (Auto) 1.7 (0-4) % Baso % (Auto) 0.9 (0-2) % Lymph # (Auto) 0.9 L (1.2-4.9) X10*3/uL Meade # (Auto) 0.4 (0.1-1.2) X10*3/uL Eos # (Auto) 0.1 (0.0-0.4) X10*3/uL Baso # (Auto) 0.1 (0.0-0.2) X10*3/uL Abs Immat Gran (auto) 0.02 (0.00-0.03) X10*3/uL Absolute Neuts (auto) 3.9 (2.0-8.3) x10*3/uL Absolute Nucleated RBC 0.000 (0.0-0.012) X10*3/uL Nucleated RBC % (auto) 0.0 (0.0-0.2) /100WBC Sodium 144 (135-145) mmol/L Potassium 4.7 (3.3-5.1) mmol/L Chloride 105 (96-108) mmol/L Carbon Dioxide 28 (22-29) mmol/L Anion Gap 16 (12-20) BUN 15 (9-16) mg/dL Creatinine 0.74 (0.5-1.4) mg/dL Estim Creat Clear Calc 51.8 Estimated GFR > 60 Random Glucose 99 (60-115) mg/dL Calcium 9.6 (8.4-10.2) mg/dL Independent Interpretation I performed an independent interpretation of an: CT Scan (No evidence of abscess. Borderline submental lymph node. Abnormal soft tissue density /opacification within the nasal passage extending into the ethmoid air cells. Skin thickening and subcutaneous edema along the submental region.) Prescription Management I considered prescription management with: Antibiotic Discharge Plan Discharge Clinical Impression: Localized swelling, mass or lump of neck Patient Disposition: Home, Self-Care Additional Instructions: I suspect the neck swelling is due to reactive lymph node, cat scan without abscess that needs to be drained, blood work reassuring, 1 dose of steroids in the ER for the swelling, continue with warm compress to 3 times a day, not too hot us to not burned the skin, and antibiotics as well, worsening swelling spiking fevers inability to open your mouth, come back to the ER otherwise follow up with the PCP Prescriptions: New clindamycin HCl [Cleocin HCl] 300 mg capsule 300 mg PO TID 5 Days Qty: 15 0RF No Action rosuvastatin 10 mg tablet 10 mg PO DAILY Qty: 90 3RF epinephrine [EpiPen 2-Kevin] 0.3 mg/0.3 mL auto-injector 0.3 mg IM Q15M PRN (Reason: anaphylaxis) Qty: 2 3RF Rx Instructions: for 3 doses cholecalciferol (vitamin D3) 50 mcg (2,000 unit) capsule 50 mcg PO DAILY omega-3 fatty acids 1,250 mg capsule 1,250 mg PO DAILY Referrals: Juliana Esparza MD [Primary Care Provider, Internal Medicine] - 1 week Clinical Impression: Localized swelling, mass or lump of neck Print Language: Slovak
[2025-03-05 07:28] LABS: MANUAL DIFF FLAG NO
[2025-03-05 07:31] LABS: Hematocrit 40.9 % (37.0-47.0); Hemoglobin 13.8 g/dl (12.0-16.0); Imm Gran Abs Auto 0.02 X10*3/uL (0.00-0.03); Imm Gran Pct Auto 0.4 % (0.0-0.4); Lymphocytes Absolute Auto 0.9 X10*3/uL (1.2-4.9); Mean Corpuscular HGB Conc 33.7 g/dl (31.0-35.0); Mean Corpuscular Hemoglobin 32.5 pg (27.0-33.0); Mean Corpuscular Volume 96.2 fL (80.0-98.0); NRBC Abs Auto 0.000 X10*3/uL (0.0-0.012); NRBC Pct Auto 0.0 /100WBC (0.0-0.2); Platelet Count 208 X10*3/uL (160-400); Red Blood Count 4.25 X10*6/uL (4.20-5.50); White Blood Count 5.3 X10*3/uL (4.8-10.8)
[2025-03-05 07:47] LABS: Anion Gap 16 (12-20); Blood Urea Nitrogen 15 mg/dL (9-16); Calcium 9.6 mg/dL (8.4-10.2); Carbon Dioxide 28 mmol/L (22-29); Chloride 105 mmol/L (96-108); Creatinine Clr Calc Pharmacy 51.8; Estimated Glomerular Filt Rate > 60; Potassium 4.7 mmol/L (3.3-5.1); Sodium 144 mmol/L (135-145)
--- OUTSIDE RECORDS SUMMARY | 2025-03-05 07:57 | XMS_ITS | Continuity of Care Document ---
Author Name [facility] Organization [facility] Care Team Providers Care Requirements Manager Name Role Phone [facility] Unavailable Unavailable Immunizations Combined list of available immunizations from the Department of Defense and Veterans Affairs facilities. Immunization Series Date Given Administered By Site Reaction Lot Number [id number] Drug Elevator Supervisor Status Comments Source COVID-19, mRNA, LNP-S, PF, 30 mcg/0.3 mL dose, trevin-sucrose 2021 BOGDASARIAN, () Not Given COVID-19, mRNA, LNP-S, PF, 30 mcg/0.3 mL dose, trevin-sucr ose [facility] COVID-19, mRNA, LNP-S, PF, 30 mcg/0.3 mL dose, trevin-sucrose 2021 [employer] (PFR) Not Given COVID-19, mRNA, LNP-S, PF, 30 mcg/0.3 mL dose, trevin-sucr ose [facility] influenza, high-dose, quadrivalent 2019 BOGDASARIAN, () Not Given influenza , high-dose , quadrival ent [facility] Influenza, high dose seasonal 2015 ZULEMA, () Not Given Influenza , high dose seasonal [facility] Social History Combined list of available smoking, tobacco, and other social history from Department of Defense and Veterans Affairs facilities. Social History Type Response Date Comment Sourc e This section is an empty social history section. [facility]
--- OUTSIDE RECORDS SUMMARY | 2025-03-05 07:58 | XMS_ITS | Clinical Summary ---
Author Organization 175 [facility] Address [address] [place] [address] Phone Care Team Providers Care Assembler Fluorescent Lights Name Role Phone Juliana Esparza MD Primary [...] (three) times a day. Active fish,bora,flax oils-om3,6,9no1 ([place] 3-6-9) 1,200 mg capsule Take 1,200 mg [...] 09/08/2024 9:26 AM EST Plan of Treatment Health Maintenance Due Date Last Done Comments RSV Immunization Adult Patients (1 - 1-dose 75+ series) 2016 Pneumococcal Vaccine: 50+ Years (2 of 2 - PPSV23) 05/18/2017 05/18/2016 Cholesterol Screening (Lipid Panel) 06/08/2022 Falls Risk Assessment 06/08/2022 Medicare Annual Wellness Visit 06/08/2022 Osteoporosis Screening (Bone Density Screening) 06/08/2022 Social Influencers of Health Screening 06/08/2022 Zoster Vaccines (2 of 2) 09/26/2022 08/01/2022 Depression Screening 07/07/2024 COVID-19 Vaccine ( season) 2024 04/16/2024, 04/21/2023, 03/10/2022, Additional history exists Influenza Vaccine (#1) 2025 , 04/21/2023, 03/10/2022, Additional history exists DTaP,Tdap,and Td Vaccines (2 - Td or Tdap) 12/20/2030 12/20/2020 HIB Vaccines Aged Out No longer eligi [...] age to complete this topic Insurance MEDICARE [facility] Care Teams Assembler Fluorescent Lights Relationship Specialty Start Date End Date Juliana Esparza MD [address] [facility] [place] [address] PCP - General 07/31/22
--- OUTSIDE RECORDS SUMMARY | 2025-03-05 07:58 | XMS_ITS | Clinical Summary ---
Author Organization [facility] Address [address] [place] [address] Phone Care Team Providers Care Software Tools Build Engineer Name Role Phone Juliana Esparza MD Primary Care Provider Allergies No known active allergies Medications No known medications Social History Tobacco Use Types Packs/Day Years Used Date Smoking Tobacco: Never Assessed Education Answer Date Recorded Are you interested in more education? Not on ynes e 11/02/2022 Are you concerned about learning? Not on file 11/02/2022 No 11/02/2022 No 11/02/2022 Digital Access Answer Date Recorded No 12/01/2022 No 12/01/2022 No 12/01/2022 Reliable internet access at home? Not on file 12/01/2022 Device with a working camera? Not on file Intimate Partner Violence Answer Date R ecorded Are you denied basic needs s uch as food, clothing, or medical care? No 08/11/2022 In the past 12 months have y ou been in a relationship with a person who hurts, threatens, or tries to control you? No 08/11/2022 Are you denied basic needs s uch as food, clothing, or medical care? No 08/11/2022 In the past 12 months have y ou been in a relationship with a person who hurts, threatens, or tries to control you? No 08/11/2022 Comments Unknown Sex and Gender Information Value Date Recorded Sex Assigned at Not on file Legal Sex Female 3:37 PM EST Gender Identity Not on file Sexual Orientation Not on file Last Filed Vital Signs Vital Sign Reading Time Taken Comments Blood Pressure 121/71 08/12/2022 12:56 AM EST Pulse 88 08/12/2022 12:56 AM EST Temperature 37 C (98.6 F) 08/12/2022 12:56 AM EST Respiratory Rate 18 08/12/2022 12:56 AM EST Oxygen Saturation 98% 08/12/2022 12:56 AM EST Inhaled Oxygen Concentration - - Weight 59 kg (130 lb) 08/11/2022 3:45 PM EST Height 160 cm (5' 3 ) 08/11/2022 3:45 PM EST Body Mass Index 23.03 08/11/2022 3:45 PM EST Plan of Treatment Health Maintenance Due Date Last Done Comments Adult Td,Tdap Booster 1941 DEPRESSION SCREENING 1953 PNEUMOCOCCAL VACCINES (50+ y ears) (1 of 1 - PCV) 11/24/1991 ZOSTER VACCINES (1 of 2) 11/24/1991 OSTEOPOROSIS SCREENING INITI AL (ONE-TIME) 2006 RSV VACCINE (1 - 1-dose 75+ series) 2016 COVID-19 VACCINE ( - 2023-2 5 season) 2024 HEPATITIS A VACCINES Aged Out No long er eligible based on patient's age to complete this topic HIB VACCINES Aged Out No longer eligi ble based on patient's age to complete this topic MENINGOCOCCAL VACCINES (ACWY) Aged Out No longer eligible based on patient's age to complete this topic MENINGOCOCCAL VACCINES (B) Aged Out N o longer eligible based on patient's age to complete this topic Medical Devices Not on file Insurance MEDICARE PART A & B FOR LIFE MEDICARE SUPPLEMENT MEDICARE PART A & B FOR LIFE MEDICARE SUPPLEMENT MEDICARE PART A & B [employer] MEDICARE SUPPLEMENT Member Subscriber Plan / Payer ( fective 2022-Present) Name:Vidhi Dunham Relation to Subscriber:Self Name:Vdihi Dunham Payer ID:[id number] (NAIC) Group ID:Not on file Type:[facility] Address: [place] [phone] MEDICARE PART A & B [employer] MEDICARE SUPPLEMENT Member Subscriber Plan / Payer ( fective 2022-Present) Name:Vidhi Dunham Relation to Subscriber:Self Name:Vidhi Dunham Payer ID:[id number] (NAIC) Group ID:Not on file Type:[facility] Address: [place] [phone] MEDICARE PART A & B [employer] MEDICARE SUPPLEMENT Member Subscriber Plan / Payer (Ef fective 2022-Present) Name:Vidhi Dunham Relation to Subscriber:Self Name:Vidhi Dunham Payer ID:[id number] (NAIC) Group ID:Not on file Type:[facility] Address: [place] [phone] MEDICARE PART A & B [employer] MEDICARE SUPPLEMENT Care Teams Software Tools Build Engineer Relationship Specialty Start Date End Date Juliana Esparza MD [facility] [place] [address] PCP - General Internal Medicine 08/11/22 Additional Source Comments The information contained in this document represents components of the legal health record. It is not the complete legal health record.[facility]
[2025-03-05] MEDS: iohexoL 350 MG/ML 100 ML INFUS..BTL IV (08:51)
[2025-03-05 09:09] VITALS: BP 148/76; PULSE 86; RESP 16; TEMP 36.6; O2SAT 97
[2025-03-05 09:41] VITALS: BP 148/76; PULSE 86; RESP 16; TEMP 36.6; O2SAT 97
== END 2025-03-05 10:30 | disposition home or self-care (01) ==
PROVIDERS: Emergency Provider Emergency Medicine; PCP Internal Medicine
DX: R22.1 Localized swelling, mass and lump, neck (principal); Z79.899 Other long term (current) drug therapy
CPT/HCPCS: 36415; 70491; 80048; 85025; 99284; 99285; J8540; Q9967

== ENCOUNTER → 2025-03-05 07:15 | Outpatient (BNV) | payer MEDICARE, OTHER, SELFPAY | PROVIDERS: Emergency Provider Emergency Medicine; PCP Internal Medicine; Visit Provider Radiology Vascular & Interventional Radiology | DX: R22.1 Localized swelling, mass and lump, neck (principal); J34.89 Other specified disorders of nose and nasal sinuses | CPT/HCPCS: 70491 ==

== ENCOUNTER 2025-03-15 14:14 | Emergency (ER) | payer MEDICARE, OTHER, SELFPAY ==
[2025-03-15 14:17] VITALS: BP 149/81; PULSE 94; RESP 18; TEMP 36.7; O2SAT 95; BMI 24.9
--- NOTE | 2025-03-15 15:43 | ED.ALLEREA ---
HPI - Allergic Reaction General Chief complaint: Allergic Reaction Stated complaint: Bee sting - allergic Time Seen by Provider: 03/15/25 14:27 Source: patient Mode of arrival: ambulatory Limitations: no limitations History of Present Illness ED Provider: Dr. 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 The patient states that she felt a sting and immediately developed pain and redness in her left posterior shoulder area. She had no other symptoms such as lightheadedness, dizziness, facial swelling, difficulty swallowing, weakness. She states she had some mild nausea but no vomiting. She denied shortness of breath. Patient states in the past she has had bee stings that have caused a rapidly progressive rash, difficulty swallowing and lightheadedness. However she states she says that the stings that she has not had severe reactions. Related Data Home Medications ?Medication ?Instructions ?Recorded ?Confirmed cholecalciferol (vitamin D3) 50 50 mcg PO DAILY 10/12/20 09/18/22 mcg (2,000 unit) capsule omega-3 fatty acids 1,250 mg 1,250 mg PO DAILY 10/12/20 09/18/22 capsule Previous Rx's ?Medication ?Instructions ?Recorded rosuvastatin 10 mg tablet 10 mg PO DAILY #90 tabs 10/29/24 epinephrine 0.3 mg/0.3 mL 0.3 mg (0.3 mL) IM Q15M PRN 12/10/24 injection, auto-injector (EpiPen anaphylaxis #2 ea 2-Kevin) clindamycin HCl 300 mg capsule 300 mg PO TID 5 days #15 caps 03/05/25 (Cleocin HCl) prednisone 20 mg tablet 40 mg (2 x 20 mg) PO DAILY 5 days 03/15/25 #10 tabs Allergies Allergy/AdvReac Type Severity Reaction Status Date / Time bees Allergy Unknown swelling Uncoded 03/15/25 14:21 lipitor AdvReac Unknown abnormal Uncoded 03/15/25 14:21 LFTs Review of Systems Review of Systems: Yes all other systems are reviewed and are negative PMFSH Past Medical History Medical History Left arm pain Osteopenia 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 Surgical History History of kidney surgery Family History Family History Father Prostate cancer Mother Essential hypertension Coronary artery disease Stroke Brother Pancreatic cancer Social History Social History Housing: House Alcohol intake: never Patient Tobacco Use Status: Never used Tobacco Smoked in Last 30 Days: No e-Cigarette/Vaping Use: Never Used Use of substances other than those prescribed or required for medical reasons: No Any prior treatment program specific to substance use: No Advance Directives: Yes Advance Directives on File: Yes Advance Directives Date on File: 07/05/22 Do you have a plan to hurt others: No Plan Current occupational status: retired Cognitive needs: No Hearing needs: No Vision needs: Yes Physical Exam ED Vital Signs: Vital Signs - 24 hr 03/15/25 14:17 Temperature 98.0 F Pulse Rate 94 Respiratory Rate 18 Blood Pressure 149/81 H Pulse Oximetry 95 Oxygen Delivery Method Room Air BMI result Body Mass Index 24.9 Vital signs revealed an elevated blood pressure of 149/81 otherwise unremarkable Exam: General: Awake, alert in no distress Head: Normocephalic, atraumatic EENT: PERRL, Lids normal, sclera normal, conjunctiva normal, nose normal , ears normal, throat without erythema or exudates Neck: Supple, no adenopathy Lung: breath sounds symmetric, no wheezing, rales or rhonchi Chest: symmetric movement, nontender Heart: regular rate and rhythm, normal S1, S2 no murmurs or rubs Abdomen: soft, non-tender, nondistended, normal bowel sounds Back: no vertebral tenderness, no CVAT Extremities: no deformities, moves all extremities symmetrically Skin: Patient has a oval-shaped erythematous patch to her left scapular area which is not warm to the touch Neuro: Awake, alert, oriented, normal speech, cranial nerves intact, moves all extremities symmetrically Psych: Pleasant, cooperative Medications Administered Discontinued Medications Generic Name Dose Route Start Last Admin Trade Name Freq PRN Reason Stop Dose Admin Prednisone 40 mg 03/15/25 15:43 03/15/25 15:50 Prednisone 20 Mg Tablet PO 03/15/25 15:44 40 mg ONCE ONE Administration Medical Decision Making Medical Decision Making MDM Narrative: 84-year-old female with a history of hyperlipidemia 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 The patient states that she felt a sting and immediately developed pain and redness in her left posterior shoulder area. She had no other symptoms such as lightheadedness, dizziness, facial swelling, difficulty swallowing, weakness. She states she had some mild nausea but no vomiting. She denied shortness of breath. Patient states in the past she has had bee stings that have caused a rapidly progressive rash, difficulty swallowing and lightheadedness. However she states she says that the stings that she has not had severe reactions. Vital signs revealed an elevated blood pressure otherwise unremarkable. Patient does have an area on her left scapular region which is consistent with very localized allergic reaction. Differential diagnosis: ?Includes but is not limited to allergic reaction, anaphylaxis Course: 13:56 Patient had no concerning symptoms to suggest that she had anaphylaxis, most likely she has a localized reaction secondary to insect bite. I did discuss this with her. I did discuss when and how to use an EpiPen as well. At this time, she does not need IM epinephrine or IV steroids. Patient was given prednisone 40 mg orally and a prescription for prednisone 40 mg orally daily x5 days to prevent a rebound reaction. She was given printed and verbal instructions and discharged home. Differential Diagnosis Differential Diagnoses: The differential diagnosis associated with the presentation includes (Yes) Admission/Observation Consideration of admission/observation: Escalation of care including admission/observation considered (Yes) Prescription Management I considered prescription management with: Other (Anti-inflammatory steroids: Prednisone) Chronic Conditions Patient?s care impacted by: Other (Hyperlipidemia) Discharge Plan Discharge Clinical Impression: Bee sting, Allergic reaction Patient Disposition: Home, Self-Care Instructions: Insect Bite or Sting (ED) Additional Instructions: You did have an insect sting to your left shoulder however you are not having a severe allergic reaction (anaphylaxis). Take prednisone 20 mg pills, 2 pills once a day for 5 days. While you ?are taking prednisone, do not take any NSAIDs (Motrin, Advil, ibuprofen, Aleve, naproxen). Prednisone is an anti-inflammatory steroid and steroids that suppresses your immune system and hopefully will prevent you from getting a worse reaction to this insect bite over the next several days (rebound reaction). In the future, if you get a bee sting you should use your epinephrine pen if you have symptoms such as lightheadedness, dizziness, difficulty swallowing, swelling of your face or lips, rapidly progressive rash, nausea, vomiting or other concerning symptoms. After you give yourself a shot of EpiPen , you should call 911 and come to the emergency department by ambulance since sometimes you need a 2nd and even 3rd shot of epinephrine. Continue taking medications as prescribed. Follow-up with your doctor in 2 days. Please return to the emergency department if your symptoms get worse or if you develop any symptoms that are concerning to you. Prescriptions: New prednisone 20 mg tablet 40 mg PO DAILY 5 Days Qty: 10 0RF No Action rosuvastatin 10 mg tablet 10 mg PO DAILY Qty: 90 3RF epinephrine [EpiPen 2-Kevin] 0.3 mg/0.3 mL auto-injector 0.3 mg IM Q15M PRN (Reason: anaphylaxis) Qty: 2 3RF Rx Instructions: for 3 doses clindamycin HCl [Cleocin HCl] 300 mg capsule 300 mg PO TID 5 Days Qty: 15 0RF cholecalciferol (vitamin D3) 50 mcg (2,000 unit) capsule 50 mcg PO DAILY omega-3 fatty acids 1,250 mg capsule 1,250 mg PO DAILY Interventions: ED Discharge Assessment Last Done: 03/15/25 15:58 Discharge Date/Time: 03/15/25 15:59 Print Language: Kyrgyz
[2025-03-15 15:58] VITALS: BP 149/81; PULSE 94; RESP 18; TEMP 36.7; O2SAT 95
--- OUTSIDE RECORDS SUMMARY | 2025-03-15 17:20 | XMS_ITS | Clinical Summary ---
Author Organization 175 [facility] Address [address] [place] [address] Phone Care Team Providers Care Secondary Teacher Name Role Phone Juliana Esparza MD Primary [...] (three) times a day. Active fish,bora,flax oils-om3,6,9no1 ([place] 3-6-9) 1,200 mg capsule Take 1,200 mg [...] Depression Screening 07/07/2024 COVID-19 Vaccine ( season) 2025 04/16/2024, 04/21/2023, 03/10/2022, Additional history exists Influenza [...] age to complete this topic Insurance MEDICARE [facility] Care Teams Secondary Teacher Relationship Specialty Start Date End Date Juliana Esparza MD [address] [facility] [place] [address] PCP - General 07/31/22
--- OUTSIDE RECORDS SUMMARY | 2025-03-15 17:20 | XMS_ITS | Clinical Summary ---
Author Organization [facility] Address [address] [place] [address] Phone Care Team Providers Care Enrolled Agent Name Role Phone Juliana Esparza MD Primary [...] VACCINE (1 - 1-dose 75+ series) 2016 INFLUENZA VACCINE (#1) 2025 COVID-19 VACCINE ( - 2023-2 5 season) 2025 HEPATITIS A VACCINES Aged Out No long [...] A & B FOR LIFE MEDICARE SUPPLEMENT [facility] Address: [address] [address] MEDICARE PART A & B FOR LIFE MEDICARE SUPPLEMENT [facility] Address: [place] [phone] MEDICARE PART A & B [facility] FOR LIFE MEDICARE SUPPLEMENT [facility] Address: [address] [phone] MEDICARE PART A & B [employer] MEDICARE SUPPLEMENT [facility] Address: [facility] [address] [place] [phone] MEDICARE PART A & B FOR [employer] MEDICARE SUPPLEMENT Care Teams Enrolled Agent Relationship Specialty Start Date End Date Juliana Esparza MD [facility] [place] [address] PCP - General Internal Medicine 08/11/22 Additional Source Comments The information contained in this document represents components of the legal health record. It is not the complete legal health record.[facility]
== END 2025-03-15 15:59 | disposition home or self-care (01) ==
PROVIDERS: Emergency Provider Emergency Medicine Emergency Medical Services; PCP Internal Medicine
DX: T63.441A Toxic effect of venom of bees, accidental (unintentional), initial encounter (principal); E78.5 Hyperlipidemia, unspecified; Y93.9 Activity, unspecified; Y92.9 Unspecified place or not applicable; Y99.9 Unspecified external cause status; Z79.899 Other long term (current) drug therapy
CPT/HCPCS: 99283; 99284

== ENCOUNTER 2025-04-20 08:24 | Outpatient (REF) | payer MEDICARE, OTHER, SELFPAY ==
--- OUTSIDE RECORDS SUMMARY | 2025-04-20 08:44 | XMS_ITS | Data Portability ---
Author Organization [facility] [address] Address [address] [place] [address] Care Team Providers Care Partner Marketing Manager Name Role Phone KIA RIVERA Primary Care Provider Assessment No assessment recorded. Plan of Treatment Reminders Order Date Submit Date Provider Last Modified By Organization Details Last Modified Time Details Appointments None recorded. Lab None recorded. Referral None recorded. Procedures None recorded. Surgeries None recorded. Imaging None recorded. Medication Orders cephalexin 500 mg capsule 2022 023 [facility][id number], [address] [facility], [place], [address], 16:27:30 Patient TargetsNo targets recorded. Patient Instructions Encounter Date Encounter Id Patient Instructions Last Modified By Organization Details Last Modified Time 08/03/2022 [id number] cellulitis: care instructions [email or web address] Not available 08/03/2022 16:27:28 Reason for Referral None Reported. Problems Name Problem SNOMED Code Status Onset Date Resolution Date Notes Provider Name and Address Organization Details Recorded Time Hypercholestero lemia 13106285 Active 2022 BRAXTON salazar PA - [facility] 16:07:19 Problem Notes None recorded. Procedures Surgical History Date Name Laterality Status Provider Name and Address Organization Details Recorded Time ureterorenoscopy with fragmentation and removal of calculus of kidney completed BRAXTON PHAN PA - [facility] 08/03/2022 16:08:33 Imaging Results None recorded. Procedure Notes None recorded. Medical Equipment None Reported. Allergies Allergen ID Allergen Name Allergen Category Reaction Reaction Severity Criticality Documentation Date Start Date Code Code System Note Provider Name and Address Organization Details Recorded Time 868191 honey bee venom medicatio n anaphylax is Not available Not available 08/03/2022 47610 7 RxNorm MARIBELL Powell [facility] 3 16:06:32 Medications Name Sig Start [...] blood by Pulse oximetry Heart rate Systolic And Diastolic Provider Name and Address Organization Details Last Updated DateTime 3 160.02 cm 23 kg/m2 34729.0 1 g 9 97.4 [degF] 18 /min 98 % 98 % 91 /min 133/81 mm[Hg] BRAXTON PHAN PA - [facility] 3 16:09:49 Social History Question Answer Notes LastModified by Organizat ion Details LastModified Time Tobacco Smoking Status Never Smoker [facility] Powell [facility] 08/03/2022 16:07:34 Have You Had Direct Contact, Or Contact During Intimacy, With Monkeypox Rash, Scabs, Or Body Fluids From A Person With Monkeypox? No Information not available 08/03/2022 Have You Recently Traveled Abroad? No Information not available 08/03/2022 Sex: Unknown Functional Status Question Answer Note LastModified by Organizat ion Details LastModified Time Do you use any illicit or recreational drugs? No Information not available 08/03/2022 Do you or have you ever used any other forms of tobacco or nicotine? No Information not available 08/03/2022 What is your level of alcohol consumption? None Information not available 08/03/2022 Mental Status None recorded. Family History Relationship [...] Diagnosis SNOMED-CT Code Diagnosis ICD10 Code Diagnosis IMO Codes Diagnosis Note [id number] [facility] [address] [address] 10/10/2016 10:07:08 10/10/2016 11:07:55 [id number] Ozziekari Garcia, _[facility] [address] [address] 08/03/2022 15:56:04 08/03/2022 16:35:45 Cellulitis 558053448 L03.90 PE consistent with Cellulitis will Rx [...] Recorded Advance Directives Directive None Recorded Payers Insurance Date Sequence Insurance Name Policy Number Policy Rosado Covered Member ID Rosado Member ID Guarantor Name 08/03/2022 [place] [employer] Vidhi K Fotopoulos [id number] Vidhi Fotopoulos 08/03/2022 1 [place] Vidhi K Fotopoulos [id number] Vidhi Fotopoulos 08/03/2022 2 FOR LIFE ( - MEDICARE SUPPLEMENT) Vidhi Fotopoulos [id number] Vidhi Fotopoulos 08/03/2022 [place] [employer] Vidhi K Fotopoulos [id number] Vidhi Fotopoulos Notes Date Note Type Note Provider Name and Address Organization Details Recorded Time 08/03/2022 text/html Skin Redness UCReported by Nmniieg61 yo female c/o right great toe redness, pain x 1.5 wks.Was seen by retail shift manager 3 days ago who cleaned and cut part of nail, but did not give antibiotic no f/c/n/v+ d/c+ rednessno rash+ pain - getting worseno traumano OTC meds ROS as noted in the HPI Ozzie Garcia, DO [address] [place], [address], PA - [facility] 08/03/2022 16:36:12 OBGyn Episode No OBEpisode recorded.
--- OUTSIDE RECORDS SUMMARY | 2025-04-20 08:44 | XMS_ITS | Clinical Summary ---
Author Organization [facility] Address [address] [place] [address] Phone Care Team Providers Care Box Sealing Machine Feeder Name Role Phone Juliana Esparza MD Primary [...] VACCINE (#1) 2025 COVID-19 VACCINE ( - 2024-2 6 season) 2025 HEPATITIS A VACCINES Aged Out [...] A & B FOR LIFE MEDICARE SUPPLEMENT Member Subscriber Plan / Payer (Ef fective 2022-Present) Name:Vidhi Dunham Relation to Subscriber:Self Name:Vidhi Dunham Payer ID:[id number] (NAIC) Group ID:Not on file Type:[facility] Address: [place] [phone] MEDICARE PART A & B [facility] FOR LIFE MEDICARE SUPPLEMENT MEDICARE PART A & B [employer] MEDICARE SUPPLEMENT MEDICARE PART A & B FOR [employer] MEDICARE SUPPLEMENT Care Teams Box Sealing Machine Feeder Relationship Specialty Start Date End Date Juliana Esparza MD [facility] [place] [address] PCP - General Internal Medicine 08/11/22 Additional Source Comments The information contained in this document represents components of the legal health record. It is not the complete legal health record.[facility]
--- OUTSIDE RECORDS SUMMARY | 2025-04-20 08:44 | XMS_ITS | Clinical Summary ---
Author Organization 175 [facility] Address [address] [place] [address] Phone Care Team Providers Care Verification Lead Name Role Phone Juliana Esparza MD Primary Care Provider [phone] Allergies Active Allergy Reactions Criticality Noted Date [...] (three) times a day. Active fish,bora,flax oils-om3,6,9no1 ([place] 3-6-9) 1,200 mg capsule Take 1,200 mg [...] Vaccine: 50+ Years (2 of 2 - PCV20 or PCV21) 05/18/2017 05/18/2016 Cholesterol Screening (Lipid Panel) 06/08/2022 [...] age to complete this topic Insurance MEDICARE [facility] Care Teams Verification Lead Relationship Specialty Start Date End Date Juliana Esparza MD [address] [facility] [address] PCP - General 07/31/22
[2025-04-20 10:51] LABS: Alanine Aminotransferase 13 U/L (0-31); Aspartate Amino Transferase 27 U/L (5-31); Cholesterol 183 mg/dL (<200); HDL Cholesterol 62 mg/dL (>40); Triglycerides 122 mg/dL (<150)
== END 2025-04-20 08:25 | disposition home or self-care (01) ==
LOC: HO.HMGCLDS 08:24
PROVIDERS: PCP Internal Medicine; Visit Provider Internal Medicine
DX: E78.5 Hyperlipidemia, unspecified (principal)
CPT/HCPCS: 36415; 80061; 84450; 84460

== ENCOUNTER 2025-05-10 09:25 | Outpatient (AMB) | payer MEDICARE, OTHER, SELFPAY ==
[2025-05-10 09:31] VITALS: BP 92/60; PULSE 74; RESP 16; TEMP 36.6; O2SAT 97; BMI 24.4
--- NOTE | 2025-05-10 09:31 | A.OFFPC_ITS ---
Vital Signs 05/10/25 09:31 Height 5 ft 3 in Weight 138 lb BMI 24.4 BP 92/60 Blood Pressure Location Lt brachial Position Sitting Respiration 16 Pulse 74 Pulse Source Pulse Oximeter Temp 97.8 F Temp Source Oral Pulse Oximetry (%) 97 Oxygen Delivery Method Room Air Intake Visit Reasons: 6 months ffup lipids Intake Note: Pt is here today 6mo. f/u lipids Allergies bees Allergy (Unknown, Uncoded 05/10/25 09:49) swelling lipitor Adverse Reaction (Unknown, Uncoded 05/10/25 09:49) abnormal LFTs Medication List - Last Reconciled 05/10/25 by Juliana Esparza MD cholecalciferol (vitamin D3) 50 mcg PO DAILY epinephrine (EpiPen 2-Kevin) 0.3 mg (0.3 mL) IM Q15M PRN omega-3 fatty acids 1,250 mg PO DAILY rosuvastatin 10 mg PO DAILY Tobacco use date assessed: 05/10/25 Fall risk assessment: No Falls in past year Last assessed Fall Risk: 05/10/25 Dental Screening Dental Screen Date: 05/10/25 Did you have a dental visit in the last 12 months?: Yes Did you have a dental problem in the last 6 months where you did not have access to dental care?: No Was dental information given to patient?: Patient has dentist HPI 6 months ffup lipids HPI Details 84-year-old lady here today for follow-u p on her lipids. Currently taking [place] 3 fatty acid supplements and rosuvastatin 10 mg daily. Compliant with medications and has been adhering to healthy eating habits, stays active. Denies any adverse effects from taking her medications. 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 1. Little interest or pleasure in doing things: not at all 2. Feeling down, depressed, or hopeless: not at all 3. Trouble falling or staying asleep, or sleeping too much: several days 4. Feeling tired or having little energy: not at all 5. Poor appetite or overeating: not at all 6. Feeling bad about yourself - or that you are a failure or have let yourself or your family down: not at all 7. Trouble concentrating on things, such as reading the newspaper or watching television: not at all 8. Moving or speaking so slowly that other people could have noticed. Or the opposite - being so fidgety or restless that you have been moving around a lot more than usual: not at all 9. Thoughts that you would be better off or of hurting yourself in some way: not at all Total score: 1 Depression Screening Interpretation: Negative Depression Screening Done: Yes Source: Developed by Drs. Jeffrey Cleaning, Liyah Devi, Jesus Self and colleagues, with an educational jose from [employer]. Thrive Questionnaire Date Thrive assessed: 10/26/24 AUDIT C Alcohol Use Questionnaire (AUDIT-C) 1. How often do you have a drink containing alcohol?: Never Total Score: 0 ANTWON-7 AMB Questionnaire ANTWON-7 Date ANTWON - 7 assessed: 05/10/25 Feeling nervous, anxious, or on edge: 0 = Not at all Not being able to stop or control worryin = Not at all Worrying too much about different things: 0 = Not at all Trouble relaxin = Not at all Being so restless that it is hard to sit still: 0 = Not at all Becoming easily annoyed or irritable: 0 = Not at all Feeling afraid as if something awful might happen: 0 = Not at all Total ANTWON-7 score (0-4 normal; 5-9 mild; 10-14 moderate; 15-21 severe): 0 Source: Developed by Drs. Jeffrey Cleaning, Liyah Devi, Jesus Self and colleagues, with an educational jose from [employer]. ANTWON-7 Assessment Billing ANTWON-7 Assessment Tool: ANTWON-7 Assessment 39849 Review of Systems Const Denies chills, Denies fever(s) and Denies weakness ENT Reports no additional complaints Card Denies chest pain, Denies leg edema, Denies lightheadedness, Denies palpitations and Denies dyspnea Resp Denies cough and Denies dyspnea GI Denies change in bowel habits Reports no additional complaints Musc Denies abnormal gait, Denies muscle weakness, Denies numbness and Denies tingling Neuro Denies abnormal gait, Denies numbness, Denies tingling and Denies weakness Endo Denies palpitations Haim/Lymph Reports no additional complaints Aller/Immun Reports no additional complaints Physical exam (Primary Care) Vital Signs: Last Vital Signs Temp 97.8 F 05/10/25 09:31 Pulse 74 05/10/25 09:31 Resp 16 05/10/25 09:31 BP 92/60 05/10/25 09:31 Pulse Ox 97 05/10/25 09:31 Oxygen Delivery Method Room Air 05/10/25 09:31 BMI result Body Mass Index 24.4 Tobacco/Smoking Status: Tobacco use Status Tobacco use date assessed 05/10/25 05/10/25 09:35 Patient Tobacco Use Status Never used Tobacco 05/10/25 09:35 e-Cigarette/Vaping Use Never Used 05/10/25 09:35 Depression Screening Interpretation: Negative Thrive Assessment: Date of Thrive Assessment Date Thrive assessed 10/26/24 05/10/25 09:35 Const Other: Alert oriented x3, no acute distress noted, ambulatory with normal gait HENMT Mouth: Normal oral and palatal mucosa present and moist mucous membranes Eyes General: appearance normal, both eyes and all related structures Neck Neck: Yes full ROM, Yes no lymphadenopathy and Yes supple Resp Auscultation: clear to auscultation bilaterally Cardio Other: S1-S2 present regular rate and rhythm GI Palpation (GI): Soft to palpation, nontender and no guarding Auscultation: normal bowel sounds Neuro General: gait normal, tone normal, moves all extremities, Normal light touch and pain sensation, no focal motor deficits and CN's II-XI intact bilaterally Extrem General: Yes full ROM, Yes no clubbing, cyanosis or edema, Yes no calf tenderness and Yes normal gait Results Reviewed Results Reviewed: Name: Vidhi Dunham Age/Sex: 84/F : 1940 Unit#: [id number] Attend Dr: Juliana Esparza MD Re04/20/25 Status: DEP [facility] Disch: SPEC : [id number] JOSEE: 04/20/25 STATUS: COMP REQ : [id number] RECD: 04/20/[address]: Juliana Esparza MD COMP: 04/20/25 ENTERED: 04/20/[address]: ORDERED: AST, ALT, Lipid Panel Test Result Flag Reference AST (GOT) 27 5-31 U/L ALT (GPT) 13 0-31 U/L Triglyceride 122 <150 mg/dL Desirable Triglyceride: less than 150 mg/dL Borderline High Triglyceride 150-199 mg/dL High Triglyceride: 200-499 mg/dL Very High Triglyceride: greater than or equal to 5OO mg/dL Cholesterol 183 <200 mg/dL Desirable Cholesterol: less than 200 mg/dL Borderline High Cholesterol: 200-239 mg/dL High Cholesterol: greater than 239 mg/dL LDL Calculated 97 <100 mg/dL Desirable LDL: less than 100 mg/dL Near Optimal/Above Optimal LDL: 110-129 mg/dL Borderline High LDL: 130-159 mg/dL High LDL: 160-189 mg/dL Very High LDL: greater than or equal to 190 mg/dL HDL 62 >40 mg/dL Desirable HDL: greater than 40 mg/dL Note: This HDL assay may give artificially low results in patients with liver disease. Coding Level of Care Code Tele Est Pt Level 4 (05639) Complex EM visit Add On G2211 Diagnoses Dyslipidemia E78.5 Osteopenia of multiple sites M85.89 Additional Codes ANTWON-7 Assessment Billing - ANTWON-7 Assessment Tool: ANTWON-7 Assessment 65704 ([id number]) Assessment & Plan Assessment & Plan (1) Dyslipidemia: Code(s): E78.5 - Hyperlipidemia, unspecified Category: Medical Plan: Fasting fasting lipids are within normal limits. Continued on rosuvastatin 10 mg daily, slightly higher triglycerides as compared to last check, prescription sent for Lovaza to take 1 capsule twice a day. Repeat lipids again in October 2025. Lab ordered (2) Osteopenia of multiple sites: Code(s): M85.89 - Other specified disorders of bone density and structure, multiple sites Category: Medical Plan: Stressed importance of doing regular weight-bearing exercise, encouraged to attend the the [facility] osteoporosis program continue with taking vitamin-D 3 supplements 2000 units daily and take adequate calcium from dietary sources. Ordered a repeat bone density scan to be done together with her screening mammogram in August 2025 Orders: Orders XR DEXA axial skeleton Today M85.89 - Other specified disorders of bone density and structure, multiple sites, Z12.31 - Encounter for screening mammogram for malignant neoplasm of breast Alanine Aminotransferase 10/08/25 E78.5 - Hyperlipidemia, unspecified, M85.89 - Other specified disorders of bone density and structure, multiple sites, Z13.1 - Encounter for screening for diabetes mellitus Vitamin D 25-OH Total 10/08/25 E78.5 - Hyperlipidemia, unspecified, M85.89 - Other specified disorders of bone density and structure, multiple sites, Z13.1 - Encounter for screening for diabetes mellitus Glucose Fasting 10/08/25 E78.5 - Hyperlipidemia, unspecified, M85.89 - Other specified disorders of bone density and structure, multiple sites, Z13.1 - Encounter for screening for diabetes mellitus MM tomosynthesis screening BI Today M85.89 - Other specified disorders of bone density and structure, multiple sites, Z12.31 - Encounter for screening mammogram for malignant neoplasm of breast Lipid Panel 10/08/25 E78.5 - Hyperlipidemia, unspecified, M85.89 - Other specified disorders of bone density and structure, multiple sites, Z13.1 - Encou nter for screening for diabetes mellitus Aspartate Amino Transferase 10/08/25 E78.5 - Hyperlipidemia, unspecified, M85.89 - Other specified disorders of bone density and structure, multiple sites, Z13.1 - Encounter for screening for diabetes mellitus Medications: New omega-3 acid ethyl esters (Lovaza) 1 cap PO BID 180 caps 2RF 3 months E78.1 - Pure hyperglyceridemia
--- OUTSIDE RECORDS SUMMARY | 2025-05-10 10:25 | XMS_ITS | Clinical Summary ---
Author Organization [facility] Address [address] [place] [address] Phone Care Team Providers Care Belt Builder Name Role Phone Juliana Esparza MD Primary [...] A & B FOR LIFE MEDICARE SUPPLEMENT [facility] Address: [address] [address] MEDICARE PART A & B FOR LIFE MEDICARE SUPPLEMENT [facility] Address: [place] [id number] MEDICARE PART A & B [facility] FOR LIFE MEDICARE SUPPLEMENT [facility] Address: [address] [address] MEDICARE PART A & B [facility] FOR [employer] MEDICARE SUPPLEMENT [facility] Address: [facility] [address] [place] [phone] MEDICARE PART A & B FOR [employer] MEDICARE SUPPLEMENT Care Teams Belt Builder Relationship Specialty Start Date End Date Juliana Esparza MD [facility] [place] [address] PCP - General Internal Medicine 08/11/22 Additional Source Comments The information contained in this document represents components of the legal health record. It is not the complete legal health record.[facility]
--- OUTSIDE RECORDS SUMMARY | 2025-05-10 10:25 | XMS_ITS | Clinical Summary ---
Author Organization 175 [facility] Address [address] [place] [address] Phone Care Team Providers Care Rip Saw Operator Name Role Phone Juliana Esparza MD [...] (three) times a day. Active fish,bora,flax oils-om3,6,9no1 ([place] 3-6-9) 1,200 mg capsule Take 1,200 mg [...] age to complete this topic Insurance MEDICARE [facility] Care Teams Rip Saw Operator Relationship Specialty Start Date End Date Juliana Esparza MD [address] [facility] [place] [place] [address] PCP - General 07/31/22
--- OUTSIDE RECORDS SUMMARY | 2025-05-10 10:25 | XMS_ITS | Data Portability ---
Author Organization [facility] [address] Address [address] [place] [address] Care Team Providers Care Broach Trouble Shooter Name Role Phone KIA RIVERA Primary Care Provider [phone] Assessment No assessment recorded. Plan of Treatment Reminders Order Date Submit Date Provider Last Modified By Organization Details Last Modified Time Details Appointments None recorded. Lab None recorded. Referral None recorded. Procedures None recorded. Surgeries None recorded. Imaging None recorded. Medication Orders cephalexin 500 mg capsule 2022 023 [facility][id number], [address], [place], [address], 16:27:30 Patient TargetsNo targets recorded. Patient Instructions Encounter Date Encounter Id Patient Instructions Last Modified By Organization Details Last Modified Time 08/03/2022 [id number] cellulitis: care instructions [email or web address] Not available 08/03/2022 16:27:28 Reason for Referral None Reported. Problems Name Problem SNOMED Code Status Onset Date Resolution Date Notes Provider Name and Address Organization Details Recorded Time Hypercholestero lemia 14305729 Active 2022 [facility] [facility] - [facility] [...] Name and Address Organization Details Recorded Time 860654 honey bee venom medicatio n anaphylax is Not available Not available 08/03/2022 51115 7 RxNorm MARIBELL Powell [facility] 3 [...] Updated DateTime 3 160.02 cm 23 kg/m2 81145.0 1 g 9 97.4 [degF] 18 /min [...] ICD10 Code Diagnosis IMO Codes Diagnosis Note [id number] _[facility] _[facility] [address] [address] 10/10/2016 10:07:08 10/10/2016 11:07:55 [id number] Ozziekari Garcia, _Chi [address] [address] 08/03/2022 15:56:04 08/03/2022 16:35:45 Cellulitis [id number] L03.90 PE consistent with Cellulitis will Rx [...] [place]: [employer] Vidhi K Fotopoulos [id number] Vidhi Fotopoulos 08/03/2022 1 [place] Vidhi K Fotopoulos [id number] Vidhi Fotopoulos 08/03/2022 2 FOR LIFE ( - MEDICARE SUPPLEMENT) Vidhi Fotopoulos [id number] Vidhi Fotopoulos 08/03/2022 MEDICARE [place]: [employer] Vidhi K Fotopoulos [id number] Vidhi Fotopoulos Notes Date Note Type Note Provider Name and Address Organization Details Recorded Time 08/03/2022 text/html Skin Redness UCReported by Eemcxnc89 yo female c/o right great toe redness, pain x 1.5 wks.Was seen by telecasting engineer 3 days ago who cleaned and cut part of nail, but did not give antibiotic no f/c/n/v+ d/c+ rednessno rash+ pain - getting worseno traumano OTC meds ROS as noted in the HPI Ozzie Garcia, DO [address] [place], [address], [place] - [facility] 08/03/2022 16:36:12 OBGyn Episode No OBEpisode recorded.
== END 2025-05-10 10:06 | disposition home or self-care (01) ==
LOC: HO.HMCC 09:25
PROVIDERS: PCP Internal Medicine; Visit Provider Internal Medicine
DX: E78.5 Hyperlipidemia, unspecified (principal); M85.89 Other specified disorders of bone density and structure, multiple sites

== ENCOUNTER → 2025-05-10 09:25 | Outpatient (BNVA) | payer MEDICARE, OTHER, SELFPAY | PROVIDERS: PCP Internal Medicine; Visit Provider Internal Medicine | DX: E78.5 Hyperlipidemia, unspecified (principal); M85.89 Other specified disorders of bone density and structure, multiple sites | CPT/HCPCS: 96127; 99212 ==